=== PATIENT | male | born 2000 ===

== ENCOUNTER 2021-04-08 09:23 | Outpatient (REF) | payer BC, SELFPAY ==
[2021-04-08 11:33] LABS: Appearance Urine CLEAR; Color Urine STRAW; Glucose Urine UA NEG (NEG); Leukocyte Esterase Urine NEG (NEG); Nitrite Urine NEG (NEG); Urine Blood NEG (NEG); Urine Ketones NEG (NEG); Urine Protein NEG (NEG-TRACE)
[2021-04-08 12:06] LABS: Alanine Aminotransferase 51 U/L (0-40); Albumin Level 4.7 g/dL (3.5-5.0); Alkaline Phosphatase 130 U/L (39-117); Anion Gap 11 (12-20); Aspartate Amino Transferase 32 U/L (5-37); Bilirubin Total 0.5 mg/dL (0.0-1.0); Blood Urea Nitrogen 22 mg/dL (9-16); Calcium 9.4 mg/dL (8.4-10.2); Carbon Dioxide 28 mmol/L (22-29); Chloride 103 mmol/L (96-108); Cholesterol 200 mg/dL; Estimated Glomerular Filt Rate > 60; Glucose Fasting 102 mg/dL (60-99); HDL Cholesterol 41 mg/dL; LDL Cholesterol Calculated 133 mg/dl; Potassium 3.9 mmol/L (3.3-5.1); Sodium 138 mmol/L (135-145); Total Protein 7.4 g/dL (6.5-8.0); Triglycerides 132 mg/dL
[2021-04-08 12:15] LABS: TSH reflex Free T4 4.93 uIU/mL (0.32-4.0)
[2021-04-08 13:01] LABS: Free T4 (Free Thyroxine) 0.82 ng/dL (0.71-1.85)
== END 2021-04-08 09:24 | disposition home or self-care (01) ==
LOC: HO.HMGCLDS 09:23
PROVIDERS: Visit Provider Nurse Practitioner Family
DX: Z00.00 Encounter for general adult medical examination without abnormal findings (principal)
CPT/HCPCS: 36415; 80053; 80061; 81003; 84439; 84443

== ENCOUNTER 2021-05-06 08:58 | Outpatient (REF) | payer BC, SELFPAY ==
--- NOTE | ~2021-05-06 | US_ITS ---
EXAMINATION: US ABDOMEN COMPLETE CLINICAL INFORMATION: Abnormal LFTs. COMPARISON: None TECHNIQUE: Real-time imaging of the abdominal viscera. FINDINGS: PANCREAS: Normal. ABDOMINAL AORTA: The proximal, mid, and distal segments are normal in caliber. INFERIOR VENA CAVA: Visualized portions are normal. LIVER: Normal. The liver is normal in size. The liver contour is normal. Parenchymal echogenicity is normal. No focal hepatic lesion. There is no intrahepatic biliary duct dilatation seen. GALLBLADDER: Normal. The gallbladder is physiologically distended without evidence of stones, sludge, polyps, wall thickening or pericholecystic fluid. COMMON BILE DUCT: Normal in caliber measuring 0.17 cm in diameter. RIGHT KIDNEY: Normal. No hydronephrosis. No renal calculi or focal parenchymal lesions. The kidney measures 10.0 cm in maximum dimension. LEFT KIDNEY: Normal. No hydronephrosis. No renal calculi or focal parenchymal lesions. The kidney measures 11.9 cm in maximum dimension. SPLEEN: Normal. The spleen measures 13.8 cm in maximum dimension. FREE FLUID: None. US/US abdomen complete IMPRESSION: Unremarkable complete abdomen ultrasound.
[2021-05-06 12:15] LABS: Alanine Aminotransferase 68 U/L (0-40); Albumin Level 4.3 g/dL (3.5-5.0); Alkaline Phosphatase 118 U/L (39-117); Aspartate Amino Transferase 31 U/L (5-37); Bilirubin Direct 0.2 mg/dL (0.0-0.5); Bilirubin Total 0.4 mg/dL (0.0-1.0); Total Protein 6.9 g/dL (6.5-8.0)
[2021-05-07 09:21] LABS: Thyroid Peroxidase Antibodies 1 IU/mL (<9)
== END 2021-05-06 08:59 | disposition home or self-care (01) ==
LOC: HO.HMGCX 08:58
PROVIDERS: PCP Nurse Practitioner Family; Visit Provider Nurse Practitioner Family
DX: R74.8 Abnormal levels of other serum enzymes (principal); R79.89 Other specified abnormal findings of blood chemistry
CPT/HCPCS: 36415; 76700; 80076; 86376

== ENCOUNTER 2021-06-23 08:53 | Outpatient (REF) | payer BC, SELFPAY ==
[2021-06-23 11:47] LABS: Alanine Aminotransferase 36 U/L (0-40); Albumin Level 4.7 g/dL (3.5-5.0); Alkaline Phosphatase 114 U/L (39-117); Anion Gap 14 (12-20); Aspartate Amino Transferase 24 U/L (5-37); Bilirubin Total 0.5 mg/dL (0.0-1.0); Blood Urea Nitrogen 22 mg/dL (9-16); Calcium 10.1 mg/dL (8.4-10.2); Carbon Dioxide 27 mmol/L (22-29); Chloride 102 mmol/L (96-108); Estimated Glomerular Filt Rate > 60; Glucose Random 93 mg/dL (60-115); Sodium 138 mmol/L (135-145); Total Protein 7.3 g/dL (6.5-8.0)
[2021-06-23 11:56] LABS: TSH reflex Free T4 3.56 uIU/mL (0.32-4.0)
== END 2021-06-23 08:54 | disposition home or self-care (01) ==
LOC: HO.HMGCLDS 08:53
PROVIDERS: PCP Nurse Practitioner Family; Visit Provider Nurse Practitioner Family
DX: R74.8 Abnormal levels of other serum enzymes (principal); R79.89 Other specified abnormal findings of blood chemistry
CPT/HCPCS: 36415; 80053; 84443

== ENCOUNTER 2021-06-28 07:57 | Outpatient (REF) | payer BC, SELFPAY ==
[2021-06-28 10:59] LABS: MANUAL DIFF FLAG NO
[2021-06-28 11:02] LABS: Appearance Urine CLEAR; Color Urine YELLOW; Glucose Urine UA NEG (NEG); Leukocyte Esterase Urine NEG (NEG); Nitrite Urine NEG (NEG); Urine Blood NEG (NEG); Urine Ketones NEG (NEG); Urine Protein NEG (NEG-TRACE)
[2021-06-28 11:09] LABS: Basophils Percent Auto 0.7 % (0-2); Eosinophils Absolute Auto 0.1 X10*3/uL (0.0-0.4); Eosinophils Percent Auto 1.6 % (0-4); Hematocrit 49.7 % (42.0-52.0); Hemoglobin 16.7 g/dl (14.0-18.0); Imm Gran Abs Auto 0.01 X10*3/uL (0.00-0.03); Imm Gran Pct Auto 0.2 % (0.0-0.4); Lymphocytes Absolute Auto 2.1 X10*3/uL (1.2-4.9); Lymphocytes Percent Auto 37.5 % (20-40); Mean Corpuscular HGB Conc 33.6 g/dl (31.0-36.0); Mean Corpuscular Hemoglobin 28.7 pg (27.0-33.0); Mean Corpuscular Volume 85.5 fL (80.0-98.0); Mean Platelet Volume 9.4 fL (9.4-12.4); Monocytes Absolute Auto 0.5 X10*3/uL (0.1-1.2); Monocytes Percent Auto 8.2 % (2-11); Neutrophils Absolute Auto 2.9 x10*3/uL (2.0-8.3); Neutrophils Percent Auto 51.8 % (45-73); Platelet Count 223 X10*3/uL (160-400); Red Blood Count 5.81 X10*6/uL (4.60-5.80); Red Cell Distribution Width 11.8 % (11.0-16.0); White Blood Count 5.6 X10*3/uL (4.8-10.8)
[2021-06-28 11:15] LABS: Alanine Aminotransferase 85 U/L (0-40); Albumin Level 4.7 g/dL (3.5-5.0); Alkaline Phosphatase 117 U/L (39-117); Anion Gap 10 (12-20); Aspartate Amino Transferase 38 U/L (5-37); Bilirubin Total 0.9 mg/dL (0.0-1.0); Blood Urea Nitrogen 23 mg/dL (9-16); Calcium 9.8 mg/dL (8.4-10.2); Carbon Dioxide 31 mmol/L (22-29); Chloride 101 mmol/L (96-108); Estimated Glomerular Filt Rate > 60; Glucose Fasting 99 mg/dL (60-99); Iron 153 mcg/dL (45-160); Percent Iron Saturation 41 % (15-50); Potassium 4.6 mmol/L (3.3-5.1); Sodium 137 mmol/L (135-145); Total Iron Binding Capacity 369 mcg/dL (228-428); Total Protein 7.4 g/dL (6.5-8.0); Unsaturated Iron Binding 216 ug/dL
[2021-06-28 11:37] LABS: Ferritin 128 ng/mL (20-250); TSH reflex Free T4 3.17 uIU/mL (0.32-4.0)
[2021-06-30 07:33] LABS: Folate 17.5 ng/mL (> or = 4.0); Vitamin B12 830 pg/mL (200-900)
[2021-06-30 07:37] LABS: Follicle Stimulating Hormone 4.1 mIU/mL (1.6-8.0); Lutenizing Hormone 3.7 mIU/mL (1.5-9.3)
[2021-07-01 03:26] LABS: Lyme Blot 3.62 index
[2021-07-01 11:52] LABS: Lyme Abs Screen POSITIVE
[2021-07-01 23:32] LABS: 18 KD (IgG) Band REACTIVE; 23 KD (IgG) Band REACTIVE; 23 KD (IgM) Band REACTIVE; 28 KD (IgG) Band NON-REACTIVE; 30 KD (IgG) Band NON-REACTIVE; 39 KD (IgM) Band NON-REACTIVE; 41 KD (IgM) Band REACTIVE; 45 KD (IgG) Band NON-REACTIVE; 58 KD (IgG) Band REACTIVE; 66 KD (IgG) Band NON-REACTIVE; 93 KD (IgG) Band NON-REACTIVE; Lyme IgG Blot Interp NEGATIVE (NEGATIVE); Lyme IgM Blot Interp POSITIVE (NEGATIVE)
[2021-07-03 13:36] LABS: Testosterone, Total 516 ng/dL (250-1100)
== END 2021-06-28 07:58 | disposition home or self-care (01) ==
LOC: HO.HMGCLDS 07:57
PROVIDERS: Visit Provider Nurse Practitioner Family
DX: R53.83 Other fatigue (principal)
CPT/HCPCS: 36415; 80053; 81003; 82607; 82728; 82746; 83001; 83002; 83540; 84402; 84403; 84443; 85025; 86617; 86618

== ENCOUNTER → 2021-08-29 07:25 | Outpatient (REF) | payer BC, SELFPAY ==
--- NOTE | 2021-08-29 07:30 | CA_ITS ---
Transthoracic Echocardiogram Patient (Last, First, Middle): Conrado Skelton G Gender: Male Date of : 2000 Age: 21 Procedure Date: 08/29/2021 Procedure Type: Transthoracic Echocardiogram Location: OP Height: 182.88 cm Weight: 102.06 kg BSA: 2.24 m2 Heart Rate: bpm BP: 120 / 72 mmHg Bleach Analyst: JOSEPH Shi MD: Homer Plasencia [facility] Special Day Class Teacher: Jamie Fernandez MD Symptoms: R06.02 - Shortness of breath Study Quality: Excellent ECG Rhythm: Sinus Conclusions: - Normal study Findings Left Ventricle Normal left ventricular size, thickness, and systolic function. The visually estimated ejection fraction is between 55-60%. Diastolic function is normal for age. Right Ventricle Normal right ventricular cavity size and systolic function. Atria Both atria are normal in size. There is no evidence of interatrial shunt. Aortic Valve Normal aortic valve structure and function. There is no aortic valve stenosis. There is no aortic valve regurgitation. Mitral Valve Normal mitral valve structure and function. There is trace mitral valve regurgitation. There is no mitral valve stenosis. Pulmonic Valve The pulmonic valve is normal. There is trace pulmonic valve regurgitation. Tricuspid Valve Normal tricuspid valve structure. There is trace tricuspid valve regurgitation. The right ventricular systolic pressure is normal. The right ventricular systolic pressure is 21 mmHg. Normal right atrial pressure. There is no evidence of pulmonary hypertension. Great Vessels All visible segments of the aorta are normal in size. The visualized portions of the pulmonary artery and branches are normal. Venous The inferior vena cava is normal in size and collapses greater than 50% with inspiration. Pericardium/Pleural There is no evidence of pericardial effusion. Prior Study Comparison No prior study available for comparison. Measurements 2D Linear Measurements IVSd: 1.07 0.6-0.9/0.6-1.0 cm LVIDd: 5.04 3.9-5.3/4.2-5.9 cm LVIDd Index: 2.25 2.4-3.2/2.2-3.1 cm/m2 LVIDs: 3.22 2.0-3.6 cm LVPWd: 1.00 0.7-1.1 cm LA Diam: 3.60 2.7-3.8/3.0-4.0 cm LAIDs Index: 1.61 1.5-2.3 cm/m2 LV Mass: 240.66 67-162/88-224 g LV Mass Index: 107.44 43-95/49-115 g/m2 LVOT Diam: 2.40 3.0+(-)1.3 cm 2D Systolic Function EF 4C: 57.00 >55% EF 2C: 52.40 >55% EF BiP: 56.00 >55% Mitral Valve MV Pk E: 0.70 MV PK A: 0.38 MV Decel Time: 304.00 E/A: 1.90 E'Lateral: 17.20 E'Medial: 12.00 E/E' Med: 5.80 E/E' Lat: 4.10 PHT: 89.00 MVA PHT: 2.47 Decel Talbot: 2.29 Aortic Valve AoV Pk Jas: 1.36 AoV Mn Jas: 0.95 AoV VTI: 0.29 AoV Pk Grad: 7.00 Aov Mn Grad: 4.00 YAZMIN Cont.VTI: 2.92 LVOT LVOT Pk Jas: 1.08 LVOT Mn Jas: 0.68 LVOT VTI: 0.19 LVOT Pk Grad: 5.00 LVOT Mn Grad: 2.00 LVOT Diam: 2.40 LVOT Area: 4.52 Diastolic Function MV Pk E: 0.70 MV Pk A: 0.38 E/A: 1.90 E'Medial: 12.00 E/E' Med: 5.80 E' Laterial: 17.20 E/E' Lat: 4.10 Right Ventricle TAPSE (mm): 20.00 TVS' Jas: 14.90 Tricuspid Valve TR Pk Jas: 2.14 TR Pk Grad: 18.00 RA Press: 3.00 RVSP: 21.00 Great Vessels Aorta Ao Asc: 3.40 2.1-3.4 cm Ao Arch: 2.90 Updated in Other Vendor System with Status of Final Jamie Fernandez MD electronically signed on 08/30/2021 2:04:32 PM with status of Final
== END ==
LOC: HO.CARD 07:25
PROVIDERS: PCP Nurse Practitioner Family; Visit Provider Nurse Practitioner Family
DX: R06.02 Shortness of breath (principal); A69.20 Lyme disease, unspecified
CPT/HCPCS: 93306

== ENCOUNTER 2021-10-27 10:35 | Outpatient (REF) | payer BC, SELFPAY ==
[2021-10-27 11:21] LABS: MANUAL DIFF FLAG NO
[2021-10-27 11:34] LABS: Basophils Percent Auto 0.5 % (0-2); Eosinophils Absolute Auto 0.1 X10*3/uL (0.0-0.4); Eosinophils Percent Auto 1.6 % (0-4); Hematocrit 48.3 % (42.0-52.0); Hemoglobin 16.4 g/dl (14.0-18.0); Imm Gran Abs Auto 0.02 X10*3/uL (0.00-0.03); Imm Gran Pct Auto 0.3 % (0.0-0.4); Lymphocytes Percent Auto 41.2 % (20-40); Mean Corpuscular Volume 85.3 fL (80.0-98.0); Monocytes Absolute Auto 0.4 X10*3/uL (0.1-1.2); Monocytes Percent Auto 5.6 % (2-11); Neutrophils Absolute Auto 3.7 x10*3/uL (2.0-8.3); Neutrophils Percent Auto 50.8 % (45-73); Platelet Count 222 X10*3/uL (160-400); Red Blood Count 5.66 X10*6/uL (4.60-5.80); Red Cell Distribution Width 11.8 % (11.0-16.0); White Blood Count 7.3 X10*3/uL (4.8-10.8)
[2021-10-27 12:23] LABS: Alanine Aminotransferase 69 U/L (0-40); Albumin Level 4.7 g/dL (3.5-5.0); Alkaline Phosphatase 114 U/L (39-117); Anion Gap 15 (12-20); Aspartate Amino Transferase 30 U/L (5-37); Bilirubin Total 0.4 mg/dL (0.0-1.0); Blood Urea Nitrogen 27 mg/dL (9-16); Calcium 9.7 mg/dL (8.4-10.2); Carbon Dioxide 28 mmol/L (22-29); Chloride 102 mmol/L (96-108); Estimated Glomerular Filt Rate > 60; Glucose Random 92 mg/dL (60-115); Iron 97 mcg/dL (45-160); Percent Iron Saturation 26 % (15-50); Potassium 4.2 mmol/L (3.3-5.1); Sodium 141 mmol/L (135-145); Total Iron Binding Capacity 377 mcg/dL (228-428); Total Protein 7.4 g/dL (6.5-8.0); Unsaturated Iron Binding 280 ug/dL
[2021-10-27 12:27] LABS: Ferritin 105 ng/mL (20-250); TSH reflex Free T4 5.48 uIU/mL (0.32-4.0)
[2021-10-27 12:31] LABS: Vitamin B12 713 pg/mL (200-900)
[2021-10-27 13:36] LABS: Free T4 (Free Thyroxine) 0.84 ng/dL (0.71-1.85)
[2021-10-27 13:54] LABS: Appearance Urine Clear; Color Urine Yellow; Glucose Urine UA Negative (Negative); Leukocyte Esterase Urine Negative (Negative); Nitrite Urine Negative (Negative); Specific Gravity - Urine 1.025 (1.005-1.025); Urine Blood Negative (Negative); Urine Ketones Negative (Negative); Urine Protein Negative (Neg-Trace)
[2021-10-29 21:47] LABS: A. Phagocytphilium DNA,RT-PCR NOT DETECTED (NOT DETECTED); Babesia Microti DNA, RT-PCR NOT DETECTED (NOT DETECTED); Borrelia Miyamotoi,DNA RT-PCR NOT DETECTED (NOT DETECTED); E.Chaffeensis DNA RT-PCR NOT DETECTED (NOT DETECTED); Lyme(Borrelia ssp)DNA RT-PCR NOT DETECTED (NOT DETECTED)
[2021-10-30 11:21] LABS: Anti Nuclear Antibody Screen NEGATIVE (NEGATIVE)
[2021-10-31 14:15] LABS: Source-Tick borne disease BLOOD
== END 2021-10-27 10:36 | disposition home or self-care (01) ==
LOC: HO.HMGCLDS 10:35
PROVIDERS: PCP Nurse Practitioner Family; Visit Provider Nurse Practitioner Family
DX: R74.8 Abnormal levels of other serum enzymes (principal); R53.83 Other fatigue
CPT/HCPCS: 36415; 80053; 81003; 82607; 82728; 82746; 83540; 84439; 84443; 85025; 86038; 86039; 87798; 87801

== ENCOUNTER 2021-12-31 06:02 | Outpatient (REF) | payer BC, MEDICAID, SELFPAY ==
[2021-12-31 11:43] LABS: Gamma Glutamyl Transpeptidase 33 U/L (11-51)
[2021-12-31 12:04] LABS: HBS Num1 2.02 mIU/mL (0-7.99); HBsAGNum1 0.19 S/CO (0.00-0.99); HIV AB/AG Nonreactive (Nonreactive); HIV Num 1 0.22 S/CO (0.00-0.99); Hepatitis A Antibody IgM 0.25 Index (0-0.79); Hepatitis B Core Antibody Nonreactive (Nonreactive); Hepatitis B Surface Antigen Negative (Negative); ~HepC Num1 0.11 S/CO (0.00-0.79); ~Hepatitis A Antibody IgM Nonreactive (Nonreactive); ~Hepatitis B Surface Antibody NONREACTIVE (Nonreactive); ~Hepatitis C Antibody Nonreactive (Nonreactive)
[2021-12-31 12:06] LABS: Ferritin 119 ng/mL (20-250)
[2021-12-31 12:09] LABS: TSH reflex Free T4 4.04 uIU/mL (0.32-4.0)
[2021-12-31 12:50] LABS: Free T4 (Free Thyroxine) 0.81 ng/dL (0.71-1.85)
[2022-01-01 18:02] LABS: Thyroid Peroxidase Antibodies 2 IU/mL (<9)
[2022-01-02 13:47] LABS: Alpha Fetoprotein 1.2 ng/mL (<6.1)
[2022-01-05 14:23] LABS: Mitochondrial Antibodies NEGATIVE (NEGATIVE)
[2022-01-06 02:37] LABS: Smooth Muscle Antibody <20 U (<20)
== END 2021-12-31 06:03 | disposition home or self-care (01) ==
LOC: HO.HMGCLDS 06:02
PROVIDERS: Absent Provider Nurse Practitioner; PCP Nurse Practitioner Family; Visit Provider Nurse Practitioner Family
DX: R79.89 Other specified abnormal findings of blood chemistry (principal)
CPT/HCPCS: 36415; 82105; 82728; 82977; 84439; 84443; 86015; 86255; 86256; 86376; 86704; 86706; 86709; 86803; 87340; 87389

== ENCOUNTER 2022-11-03 06:02 | Outpatient (REF) | payer BC, SELFPAY ==
[2022-11-03 11:37] LABS: MANUAL DIFF FLAG NO
[2022-11-03 11:53] LABS: Appearance Urine Clear; Color Urine Yellow; Glucose Urine UA Negative (Negative); Leukocyte Esterase Urine Negative (Negative); Nitrite Urine Negative (Negative); Urine Blood Negative (Negative); Urine Ketones Negative (Negative); Urine Protein Negative (Neg-Trace)
[2022-11-03 11:59] LABS: Basophils Percent Auto 0.5 % (0-2); Eosinophils Absolute Auto 0.1 X10*3/uL (0.0-0.4); Eosinophils Percent Auto 1.4 % (0-4); Hematocrit 48.6 % (42.0-52.0); Hemoglobin 15.9 g/dl (14.0-18.0); Imm Gran Abs Auto 0.01 X10*3/uL (0.00-0.03); Imm Gran Pct Auto 0.2 % (0.0-0.4); Lymphocytes Absolute Auto 2.3 X10*3/uL (1.2-4.9); Lymphocytes Percent Auto 34.7 % (20-40); Mean Corpuscular HGB Conc 32.7 g/dl (31.0-36.0); Mean Corpuscular Hemoglobin 29.4 pg (27.0-33.0); Mean Platelet Volume 9.7 fL (9.4-12.4); Monocytes Absolute Auto 0.3 X10*3/uL (0.1-1.2); Monocytes Percent Auto 4.6 % (2-11); Neutrophils Absolute Auto 3.9 x10*3/uL (2.0-8.3); Neutrophils Percent Auto 58.6 % (45-73); Platelet Count 227 X10*3/uL (160-400); Red Cell Distribution Width 12.2 % (11.0-16.0); White Blood Count 6.6 X10*3/uL (4.8-10.8)
[2022-11-03 12:24] LABS: Alanine Aminotransferase 40 U/L (0-40); Albumin Level 4.6 g/dL (3.5-5.0); Alkaline Phosphatase 98 U/L (39-117); Anion Gap 12 (12-20); Aspartate Amino Transferase 26 U/L (5-37); Bilirubin Total 0.4 mg/dL (0.0-1.0); Blood Urea Nitrogen 22 mg/dL (9-16); Calcium 9.7 mg/dL (8.4-10.2); Carbon Dioxide 27 mmol/L (22-29); Chloride 106 mmol/L (96-108); Cholesterol 160 mg/dL (<200); Estimated Glomerular Filt Rate > 60; Glucose Fasting 97 mg/dL (60-99); HDL Cholesterol 39 mg/dL (>40); LDL Cholesterol Calculated 103 mg/dL (<100); Potassium 4.5 mmol/L (3.3-5.1); Sodium 140 mmol/L (135-145); Total Protein 7.1 g/dL (6.5-8.0); Triglycerides 91 mg/dL (<150)
[2022-11-03 13:03] LABS: Free T4 (Free Thyroxine) 0.82 ng/dL (0.71-1.85)
[2022-11-05 03:53] LABS: Thyroid Peroxidase Antibodies 1 IU/mL (<9)
== END 2022-11-03 06:03 | disposition home or self-care (01) ==
LOC: HO.HMGCLDS 06:02
PROVIDERS: PCP Nurse Practitioner Family; Visit Provider Nurse Practitioner Family
DX: R79.89 Other specified abnormal findings of blood chemistry (principal); R94.6 Abnormal results of thyroid function studies
CPT/HCPCS: 36415; 80053; 80061; 81003; 84439; 84443; 85025; 86376

== ENCOUNTER 2023-02-01 06:03 | Outpatient (REF) | payer BC, SELFPAY ==
[2023-02-01 12:04] LABS: TSH reflex Free T4 5.21 uIU/mL (0.32-4.0)
[2023-02-01 12:41] LABS: Free T4 (Free Thyroxine) 0.85 ng/dL (0.71-1.85)
== END 2023-02-01 06:04 | disposition home or self-care (01) ==
LOC: HO.HMGCLDS 06:03
PROVIDERS: PCP Nurse Practitioner Family; Visit Provider Nurse Practitioner Family
DX: R94.6 Abnormal results of thyroid function studies (principal)
CPT/HCPCS: 36415; 84439; 84443

== ENCOUNTER 2023-02-03 08:46 | Outpatient (AMB) | payer BC, SELFPAY ==
--- NOTE | 2023-02-03 08:52 | MHC.PC.OV ---
Vital Signs 02/03/23 08:55 Height 6 ft Weight 236 lb BMI 32.0 BP 130/100 H Blood Pressure Location Lt brachial Position Sitting Pulse 75 Pulse Source Pulse Oximeter Pulse Oximetry (%) 97 Oxygen Delivery Method Room Air Intake Visit Reasons: Thyroid F/U Intake Note: Patient here for follow up on thyroid labs. Allergies No Known Allergies Allergy (Verified 02/03/23 08:55) Medication List - Last Reconciled 02/03/23 by Homer Plasencia, CERTIFIED PERSONAL TRAINER- multivitamin (Daily Multi-Vitamin tablet) 1 tab PO DAILY Tobacco use date assessed: 04/30/22 HPI Thyroid F/U HPI Details Pt's last TSH was elevated at 5.21. Pt would like to monitor this rather than starting medication at this time. Denies excessive fatigue, constipation, and cold intolerance. Pt's blood pressure is elevated. Will have pt monitor his blood pressure at home and drop off readings in 3 weeks. Denies chest pain, shortness of breath, headache, dizziness, and blurred vision. Pt c/o diarrhea. He reports that he has to use the bathroom 20 minutes after eating. Pt does not have any cramping with this. Will order labs/stool studies. Denies fever, chills, and blood in stool. Pt reports intermittent chest discomfort with exercise. Will do an EKG in office. [facility] Medical History Lyme disease Social History (Updated 04/30/22 @ 10:37 by Odalys Lujan MA) Housing: Apartment Alcohol intake: never Patient Tobacco Use Status: Never used Tobacco e-Cigarette/Vaping Use: Never Used Second Hand Smoke Exposure: No service: No Current occupational status: employed Current occupation: [employer] Current occupational exposures/hazards: No Cognitive needs: No Hearing needs: No Vision needs: No Questionnaire Thrive Questionnaire Date Thrive assessed: 04/30/22 LYNN-7 AMB Questionnaire LYNN-7 Date LYNN - 7 assessed: 04/30/22 Source: Developed by Drs. Stevan Dover, Denisha Fuentes, Justin Rahman and colleagues, with an educational christina from [employer] Review of Systems Const Reports as per HPI Physical exam (Primary Care) Vital Signs: Last Vital Signs Pulse 75 02/03/23 08:55 BP 130/100 H 02/03/23 08:55 Pulse Ox 97 02/03/23 08:55 Oxygen Delivery Method Room Air 02/03/23 08:55 BMI result Body Mass Index 32.0 Tobacco/Smoking Status: Tobacco use Status Tobacco use date assessed 04/30/22 02/03/23 08:55 Patient Tobacco Use Status Never used Tobacco 02/03/23 08:55 e-Cigarette/Vaping Use Never Used 02/03/23 08:55 Thrive Assessment: Date of Thrive Assessment Date Thrive assessed 04/30/22 02/03/23 08:55 Const General: cooperative Orientation/consciousness: patient oriented x3 Resp Effort & Inspection: normal respiratory effort Auscultation: clear to auscultation bilaterally Cardio Rate: regular rate Rhythm: regular rhythm Heart sounds: S1 normal heart sound present and S2 normal heart sound present GI Palpation (GI): nontender Neuro General: patient oriented x3 Psych Appearance: grossly normal Mental Status: mental status grossly normal Speech and movement: Normal speech and movement present Affect: normal affect Attitude: cooperative Thought process: Normal thought process present Thought content: Normal thought content present Insight: Good insight present (Psych) Judgement: Good judgement present (Psych) Assessment and Plan Assessment & Plan (1) Diarrhea: Code(s): R19.7 - Diarrhea, unspecified Plan: Labs/stool studies ordered (2) Elevated TSH: Code(s): R79.89 - Other specified abnormal findings of blood chemistry (3) Chest discomfort: Code(s): R07.89 - Other chest pain Plan: ER with worsening CP Plan The patient agreed to the use of a medical records assistant for this encounter. Scribed for YASMINE Strong by Jovita Kelley medical records assistant, on 02/03/2023 at 09:10 EST. Orders: Orders H pylori Ag Stool Today R19.7 - Diarrhea, unspecified CDiff Gene PCR Today R19.7 - Diarrhea, unspecified Endomysial IgA rflx Titer Today R19.7 - Diarrhea, unspecified AMB EKG-In Office Today R07.89 - Other chest pain GI Panel Today R19.7 - Diarrhea, unspecified Transglutaminase IgA Today R19.7 - Diarrhea, unspecified Coding Level of Care Code Est Pt Level 3 (15655) Diagnoses Diarrhea R19.7 Elevated TSH R79.89 Chest discomfort R07.89
[2023-02-03 08:55] VITALS: BP 130/100; PULSE 75; O2SAT 97; BMI 32.0
== END 2023-02-03 10:16 | disposition home or self-care (01) ==
PROVIDERS: PCP Nurse Practitioner Family; Visit Provider Nurse Practitioner Family
DX: R19.7 Diarrhea, unspecified (principal); R79.89 Other specified abnormal findings of blood chemistry; R07.89 Other chest pain
CPT/HCPCS: 99213

== ENCOUNTER 2023-02-03 10:04 | Outpatient (REF) | payer BC, SELFPAY ==
[2023-02-05 20:14] LABS: Transglutaminase IgA <1.0 U/mL
[2023-02-06 11:42] LABS: Endomysial IgA Antibody Negative (Negative)
== END 2023-02-03 10:05 | disposition home or self-care (01) ==
LOC: HO.HMGCLDS 10:04
PROVIDERS: PCP Nurse Practitioner Family; Visit Provider Nurse Practitioner Family
DX: R19.7 Diarrhea, unspecified (principal)
CPT/HCPCS: 36415; 86231; 86364

== ENCOUNTER 2023-02-27 06:45 | Outpatient (REF) | payer BC, SELFPAY ==
[2023-02-27 12:35] LABS: CDiff Gene PCR NEGATIVE (Negative)
[2023-02-27 12:49] LABS: Adenovirus F 40/41 Not Detected (Not Detect.); Astrovirus Not Detected (Not Detect.); Campylobacter Not Detected (Not Detect.); Cryptosporidium Not Detected (Not Detect.); Cyclospora cayetanensis Not Detected (Not Detect.); E. coli EAEC Not Detected (Not Detect.); E. coli EPEC Not Detected (Not Detect.); E. coli ETEC Not Detected (Not Detect.); E. coli STEC Not Detected (Not Detect.); Entamoeba histolytica Not Detected (Not Detect.); Giardia lamblia Not Detected (Not Detect.); Norovirus GI/GII Not Detected (Not Detect.); Plesiomonas shigelloides Not Detected (Not Detect.); Rotavirus A Not Detected (Not Detect.); Salmonella Not Detected (Not Detect.); Sapovirus Not Detected (Not Detect.); Shigella sp./EIEC Not Detected (Not Detect.); Vibrio Not Detected (Not Detect.); Vibrio Cholerae Not Detected (Not Detect.); Yersinia enterocolitica Not Detected (Not Detect.)
== END 2023-02-27 06:46 | disposition home or self-care (01) ==
LOC: HO.HMGCLNP 06:45
PROVIDERS: PCP Nurse Practitioner Family; Visit Provider Nurse Practitioner Family
DX: R19.7 Diarrhea, unspecified (principal)
CPT/HCPCS: 87338; 87493; 87507

== ENCOUNTER 2023-05-12 16:32 | Outpatient (AMB) | payer BC, SELFPAY ==
[2023-05-12 16:37] VITALS: BP 122/68; PULSE 76; O2SAT 98; BMI 32.8
--- NOTE | 2023-05-12 16:37 | A.OFFPC_ITS ---
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 He is currently seeing GI for cramping and bloating after eating. He further reports still getting chest tightness approx 20 minutes after exercise/running. EKG were NSR, echo was NORMAL STUDY. He does report some faint wheezing during the chest tightness as well. I will get pFT testing (? exercise induced asthma component). I will also send him a CLARICE to try before exercise to see if this may help his symptoms. low lido, will recheck T levels, able to get an erection. [facility] Medical History Lyme disease Social History Housing: Apartment Alcohol intake: never Patient Tobacco Use Status: Never used Tobacco e-Cigarette/Vaping Use: Never Used Second Hand Smoke Exposure: No service: No Current occupational status: employed Current occupation: [employer] Current occupational exposures/hazards: No Cognitive needs: No Hearing needs: No Vision needs: No Questionnaire Thrive Questionnaire Date Thrive assessed: 04/30/22 LYNN-7 AMB Questionnaire LYNN-7 Date LYNN - 7 assessed: 04/30/22 Source: Developed by Drs. Stevan Dover, Denisha Fuentes, Justin Rahman and colleagues, with an educational christina from [employer]. Review of Systems Const Denies chills and Denies fever(s) Eyes Denies blurry vision ENT Denies vertigo, Denies dizziness and Denies sore throat Card Denies chest pain at rest, Denies chest pain with activity, Denies diaphoresis, Denies dyspnea and Denies dyspnea on exertion Resp Denies cough, Denies dyspnea, Denies dyspnea on exertion and Reports wheezing (with exercise only, denies any SOB) GI Details: cramping and bloating Denies abdominal pain, Denies melena, Denies hematochezia, Denies constipation, Denies diarrhea and Denies loose stools Denies hematuria Musc Denies numbness and Denies tingling Skin/Breast Denies lesions Neuro Denies vertigo, Denies dizziness, Denies numbness and Denies tingling Psych Denies anxiety, Denies depression, Denies homicidal ideation, Denies suicidal ideation and Denies other (substance abuse) Aller/Immun Reports wheezing (with exercise only, denies any SOB) Physical exam (Primary Care) Vital Signs: Last Vital Signs Pulse 76 05/12/23 16:37 BP 122/68 05/12/23 16:37 Pulse Ox 98 05/12/23 16:37 BMI result Body Mass Index 32.8 Tobacco/Smoking Status: Tobacco use Status Tobacco use date assessed 05/12/23 05/12/23 16:39 Patient Tobacco Use Status Never used Tobacco 05/12/23 16:39 e-Cigarette/Vaping Use Never Used 05/12/23 16:39 Thrive Assessment: Date of Thrive Assessment Date Thrive assessed 04/30/22 05/12/23 16:39 Const General: cooperative Nutritional Appearance: well nourished Orientation/consciousness: patient oriented x3 HENMT Head: Yes normal to inspection, Yes normocephalic and Yes atraumatic Ears: TM normal on the right and TM normal on the left Eyes General: appearance normal, both eyes and all related structures Alignment and Position: alignment normal and position normal Neck Neck: Yes normal visual inspection and Yes no lymphadenopathy Resp Effort & Inspection: normal respiratory effort Auscultation: clear to auscultation bilaterally Cardio Rate: regular rate Rhythm: regular rhythm Heart sounds: S1 normal heart sound present, S2 normal heart sound present and Murmur heart sound present systolic GI Palpation (GI): Soft to palpation and nontender Auscultation: normal bowel sounds Male General Exam: Yes normal external exam Penis: normal penis Scrotum: scrotum normal, testes descended bilaterally and no inguinal hernias Testes: no testicular mass Skin Rashes: no rashes Neuro General: patient oriented x3, moves all extremities, no focal motor deficits and deep tendon reflexes 2+ bilaterally Romberg Test: Negative Extrem Right lower extremity: no edema Left lower extremity: no edema Psych Affect: normal affect Attitude: cooperative Thought process: Normal thought process present Assessment and Plan Assessment & Plan (1) Physical exam: Code(s): Z00.00 - Encounter for general adult medical examination without abnormal findings Plan: labs ordered (2) Low libido: Code(s): R68.82 - Decreased libido Plan: check T levels (3) Chest tightness: Comment: chest tightness with exercise (? asthma) Code(s): R07.89 - Other chest pain Orders: Orders Complete Blood Count Auto Diff Today Z00.00 - Encounter for general adult medical examination without abnormal findings TSH reflex Free T4 Today Z00.00 - Encounter for general adult medical examination without abnormal findings UA CC w/rflx Micro + Cult Today Z00.00 - Encounter for general adult medical examination without abnormal findings Testosterone, Total Today R68.82 - Decreased libido Comprehensive [place]. Panel Fast Today Z00.00 - Encounter for general adult medical examination without abnormal findings Lipid Panel Today Z00.00 - Encounter for general adult medical examination without abnormal findings PFT pulmonary function test Today R07.89 - Other chest pain Medications: New albuterol sulfate 90 mcg/actuation (Ventolin HFA) 1 puff inhalation QID PRN 8.5 grams 0RF shortness of breath or wheezing Coding Level of Care Code Est Pt Prev Care 18-39y(67219) Diagnoses Physical exam Z00.00 Low libido R68.82 Chest tightness R07.89
== END 2023-05-12 17:27 | disposition home or self-care (01) ==
PROVIDERS: PCP Nurse Practitioner Family; Visit Provider Nurse Practitioner Family
DX: Z00.00 Encounter for general adult medical examination without abnormal findings (principal); R68.82 Decreased libido; R07.89 Other chest pain
CPT/HCPCS: 99395

== ENCOUNTER 2023-05-13 15:47 | Outpatient (AMB) | payer BC, SELFPAY ==
--- NOTE | 2023-05-13 15:51 | A.OFFVIS_ITS ---
Intake Vital Signs 05/13/23 15:54 Height 6 ft Weight 240 lb 4.862 oz BMI 32.6 BP 142/65 H Blood Pressure Location Lt brachial Position Sitting Pulse 70 Intake Visit Reasons: Diarrhea Intake Note: Patient present to in office visit today in follow up of diarrhea. CC: Patient reports nausea sometimes and diarrhea. Denies having other GI concerns. [employer] Required: No Accompanied by: Self / Same As Patient Allergies No Known Allergies Allergy (Verified 05/13/23 15:56) HPI Diarrhea HPI Details Assessment & Plan (1) Elevated LFTs: Comment: Baseline Laboratory Tests 05/06/21 Total Bilirubin 0.4 Direct Bilirubin 0.2 AST 30 ALT 69 H Alkaline Phosphatase 114 NARDA Screen NEGATIVE. Ferritin 119 GGT 33 Alpha Fetoprotein 1.2 Anti-Mitochondrial Ab NEGATIVE Anti-Smooth Muscle Ab <20 Hepatitis A IgM Ab TSH 4.04 H Free T4 0.81 Hepatitis A IgM Ab Nonreactive Hep Bs Antigen Negative Hep Bs Antibody NONREACTIVE Hep B Core Total Ab Nonreactive Hepatitis C Ab (EIA) Nonreactive HIV 1&2 Ab/P24 Ag 4thGn Nonreactive HE DOES NOT DRINK ALCOHOL CURRENT LABS US ABD 05/06/21 FINDINGS: PANCREAS: Normal. ABDOMINAL AORTA: The proximal, mid, and distal segments are normal in caliber. INFERIOR VENA CAVA: Visualized portions are normal. LIVER: Normal. The liver is normal in size. The liver contour is normal. Parenchymal echogenicity is normal. No focal hepatic lesion. There is no intrahepatic biliary duct dilatation seen. GALLBLADDER: Normal. The gallbladder is physiologically distended without evidence of stones, sludge, polyps, wall thickening or pericholecystic fluid. COMMON BILE DUCT: Normal in caliber measuring 0.17 cm in diameter. RIGHT KIDNEY: Normal. No hydronephrosis. No renal calculi or focal parenchymal lesions. The kidney measures 10.0 cm in maximum dimension. LEFT KIDNEY: Normal. No hydronephrosis. No renal calculi or focal parenchymal lesions. The kidney measures 11.9 cm in maximum dimension. SPLEEN: Normal. The spleen measures 13.8 cm in maximum dimension. FREE FLUID: None. US/US abdomen complete IMPRESSION: Unremarkable complete abdomen ultrasound. Code(s): R79.89 - Other specified abnormal findings of blood chemistry . We review the results, and a does not appear that he has any severely worrying liver problems.? I explained that he does not have any infections, and no indication of autoimmune disease.? I did note that he has a history of Lyme disease and elevated thyroid so I am uncertain whether these may be also contributing to the mild rise in his transaminases.? He is aware of the elevated thyroid he and his primary care doctor following this.? He is aware that we will watch him at 6 month intervals to see if there is any change and he is encouraged again to keep his weight controlled, avoid alcohol, and if he ever becomes diabetic to control his blood sugars is these at the 3 primary controllable factors when it comes to metabolic liver disease. He is agreeable to a 6 month follow-up.? ? Laboratory Tests 02/03/23 10:15 Endomysial IgA Ab Negative Tiss Transglutamin IgA <1.0 02/27/23-[address]: ORDERED: GI Panel Test Result Flag Refere nce Campylobacter No t Detected Not Det ect. P. shigell oides Not Detected No t Detect. Salmo blaze Not Detect ed Not Detect. Vibrio Not D etected Not Detect . Vibrio Choler ae Not Detected Not D etect. Y. enter ocolit. Not Detected Not Detect. E. coli EAEC Not Dete cted Not Detect. E. coli EPEC Not Detected Not Dete ct. E. coli ETE C Not Detected Not Detect. E. col i STEC Not Detecte d Not Detect. E . coli O157 Not kevyn licable Not Detect. E. coli c ontaining the O157 antigen are a sub set of Shig a-like toxin-produ cing E. coli (STEC ). Shigella/EIEC Not Detected Not D etect. Cryptosp oridium Not Detected Not Detect. Cyc lospora Not Dete cted Not Detect. E. histolytica Not Detected Not Dete ct. Giardia pal blia Not Detected Not Detect. Adenov irus Not Detecte d Not Detect. A strovirus Not De tected Not Detect. Norovirus N ot Detected Not De tect. Rotavirus A Not Detected N ot Detect. Denny virus Not Detec princess Not Detect. TODAY'S VISIT Patient has been lost follow-up since 01/22/2022. He is here today to with a new problem of diarrhea. He is having nausea and post prandial BM's, this has been a problem for years. It has worsened over the past year, and he has a lot of bloating. His PCP did some tests and there is no infection and no Celiac. He also has a LOT of bloating with flatulence. He bloats wtih eating anything including drinking water. He is unsure if there is any family hx of similar sx. We know his GB is ok r/t past US. He eats a very organic and healthy diet. ROV 3 weeks. [facility] Medical History Lyme disease Surgical History No pertinent past surgical history Social History Housing: Apartment Alcohol intake: never Patient Tobacco Use Status: Never used Tobacco e-Cigarette/Vaping Use: Never Used Second Hand Smoke Exposure: No service: No Current occupational status: employed Current occupation: [employer] Current occupational exposures/hazards: No Cognitive needs: No Hearing needs: No Vision needs: No Review of Systems Const Denies fatigue, Denies fever(s), Denies night sweats, Denies poor appetite and Denies weight loss Eyes Details: glasses Reports requires corrective lenses ENT Reports Normal hearing present, Denies dental pain, Denies dysphagia, Denies hearing loss, Denies mouth pain, Denies odynophagia, Denies throat swelling, Denies tongue swelling and Reports other (Dentition adequate) Card Reports no additional complaints Resp Reports no additional complaints GI Details: Denies abdominal pain, Denies melena, Denies bloating, Denies hematochezia, Denies constipation, Denies GI cramping, Denies dysphagia, Denies excessive flatus, Denies early satiety, Denies heartburn, Denies diarrhea, Reports loose stools, Reports nausea, Denies odynophagia, Denies vomiting and Denies he matemesis Skin/Breast Denies pruritus, Denies lesions, Denies rash and Denies jaundice Neuro Reports Normal hearing present and Denies Abnormal speech present Endo Denies fatigue Aller/Immun Denies throat swelling and Denies tongue swelling Physical Exam Vital Signs: Last Vital Signs Pulse 70 05/13/23 15:54 BP 142/65 H 05/13/23 15:54 BMI result Body Mass Index 32.6 Const General: cooperative, no acute distress, well developed and well groomed Nutritional Appearance: well nourished and obese Orientation/consciousness: oriented to person, oriented to place and oriented to time Limitations: No language barrier HEENT Head: Yes normocephalic and Yes atraumatic Eyes General: appearance normal, both eyes and all related structures Pupils: Equal, round and reactive pupils present Neck Neck: Yes normal visual inspection and Yes no lymphadenopathy Thyroid: Thyroid normal Resp Effort & Inspection: normal respiratory effort and able to speak in complete sentences Auscultation: clear to auscultation bilaterally Cardio Rate: regular rate Rhythm: regular rhythm Heart sounds: Normal, physiologic split S2 sound present Peripheral pulses: radial pulses present and posterior tibial pulses present GI Inspection: No distended, No Abdominal panniculus present and Yes obesity Palpation (GI): Soft to palpation, nontender, no guarding, not rigid and No hepatosplenomegaly present Percussion: Yes normal to percussion Auscultation: normal bowel sounds Rectal Exam - Male: Yes deferred Skin General skin exam: no rashes or lesions noted, turgor normal, skin not dry, no jaundice, No spider nevi and no striae Rashes: no rashes Nails: normal Neuro General: oriented to person, oriented to place and oriented to time Cranial nerves: Yes Equal, round and reactive pupils present and Yes Normal hearing present Speech: No Abnormal speech present Extrem General: Yes normal to inspection, No clubbing, No cyanosis and No edema Psych Appearance: grossly normal and well kempt Mental Status: mental status grossly normal Speech and movement: Normal speech and movement present Affect: normal affect Attitude: cooperative Thought process: Normal thought process present and not confabulating Thought content: Normal thought content present Insight: Fair insight present (Psych) and Limited insight present (Psych) Judgement: Fair judgement present (Psych) and Limited judgement present (Psych) Assessment & Plan Assessment & Plan (1) Diarrhea: Code(s): R19.7 - Diarrhea, unspecified Plan Patient has been lost follow-up since 01/22/2022. He is here today to with a new problem of diarrhea. He is having nausea and post prandial BM's, this has been a problem for years. It has worsened over the past year, and he has a lot of bloating. His PCP did some tests and there is no infection and no Celiac. He also has a LOT of bloating with flatulence. He bloats wtih eating anything including drinking water. He is unsure if there is any family hx of similar sx. We know his GB is ok r/t past US. He eats a very organic and healthy diet. ROV 3 weeks. I am going to give him a trial of dicyclomine to see if this impacts postprandial diarrhea and bloating at all. The nausea could be driven by an overactive bowel. Orders: Orders Calprotectin, Fecal Today R19.7 - Diarrhea, unspecified Rast Allergen Today R19.7 - Diarrhea, unspecified Pancreatic Elastase-1 Today R19.7 - Diarrhea, unspecified C Reactive Protein Today R19.7 - Diarrhea, unspecified Medications: New dicyclomine 10 mg PO QID 120 caps 3RF R19.7 - Diarrhea, unspecified Coding Level of Care Code Est Pt Level 3 (48111) Diagnoses Diarrhea R19.7
[2023-05-13 15:54] VITALS: BP 142/65; PULSE 70; BMI 32.6
== END 2023-05-13 16:21 | disposition home or self-care (01) ==
PROVIDERS: PCP Nurse Practitioner Family; Visit Provider Nurse Practitioner
DX: R19.7 Diarrhea, unspecified (principal)
CPT/HCPCS: 99213

== ENCOUNTER → 2023-05-13 15:47 | Outpatient (BNVA) | payer BC, SELFPAY | PROVIDERS: PCP Nurse Practitioner Family; Visit Provider Nurse Practitioner ==

== ENCOUNTER 2023-05-15 06:45 | Outpatient (REF) | payer BC, SELFPAY ==
[2023-05-15 10:58] LABS: Appearance Urine Clear; Color Urine Yellow; Glucose Urine UA Negative (Negative); Leukocyte Esterase Urine Negative (Negative); Nitrite Urine Negative (Negative); Specific Gravity - Urine 1.025 (1.005-1.025); Urine Blood Negative (Negative); Urine Ketones Negative (Negative); Urine Protein Negative (Neg-Trace)
[2023-05-15 11:09] LABS: MANUAL DIFF FLAG NO
[2023-05-15 11:12] LABS: Basophils Percent Auto 0.5 % (0-2); Eosinophils Absolute Auto 0.1 X10*3/uL (0.0-0.4); Eosinophils Percent Auto 2.2 % (0-4); Hematocrit 49.6 % (42.0-52.0); Hemoglobin 16.8 g/dl (14.0-18.0); Imm Gran Abs Auto 0.02 X10*3/uL (0.00-0.03); Imm Gran Pct Auto 0.3 % (0.0-0.4); Lymphocytes Absolute Auto 2.8 X10*3/uL (1.2-4.9); Lymphocytes Percent Auto 45.1 % (20-40); Mean Corpuscular HGB Conc 33.9 g/dl (31.0-36.0); Mean Corpuscular Hemoglobin 29.5 pg (27.0-33.0); Mean Platelet Volume 9.5 fL (9.4-12.4); Monocytes Absolute Auto 0.4 X10*3/uL (0.1-1.2); Monocytes Percent Auto 5.9 % (2-11); Neutrophils Absolute Auto 2.9 x10*3/uL (2.0-8.3); Platelet Count 211 X10*3/uL (160-400); Red Cell Distribution Width 11.9 % (11.0-16.0); White Blood Count 6.2 X10*3/uL (4.8-10.8)
[2023-05-15 12:14] LABS: Alanine Aminotransferase 44 U/L (0-40); Albumin Level 4.7 g/dL (3.5-5.0); Alkaline Phosphatase 118 U/L (39-117); Anion Gap 11 (12-20); Aspartate Amino Transferase 30 U/L (5-37); Bilirubin Total 0.5 mg/dL (0.0-1.0); Blood Urea Nitrogen 26 mg/dL (9-16); C Reactive Protein < 0.10 mg/dL (< or = 0.50); Calcium 9.7 mg/dL (8.4-10.2); Carbon Dioxide 28 mmol/L (22-29); Chloride 106 mmol/L (96-108); Cholesterol 218 mg/dL (<200); Estimated Glomerular Filt Rate > 60; Glucose Fasting 97 mg/dL (60-99); HDL Cholesterol 43 mg/dL (>40); LDL Cholesterol Calculated 154 mg/dL (<100); Potassium 4.2 mmol/L (3.3-5.1); Sodium 141 mmol/L (135-145); Total Protein 7.6 g/dL (6.5-8.0); Triglycerides 108 mg/dL (<150)
[2023-05-20 23:04] LABS: Pancreatic Elastase-1 >500 mcg/g
[2023-05-21 12:34] LABS: Testosterone, Total 507 ng/dL (250-1100)
[2023-05-22 20:23] LABS: Calprotectin, Fecal 21 mcg/g
== END 2023-05-15 06:46 | disposition home or self-care (01) ==
LOC: HO.HMGCLDS 06:45
PROVIDERS: PCP Nurse Practitioner Family; Referring Provider Nurse Practitioner; Visit Provider Nurse Practitioner Family
DX: Z00.00 Encounter for general adult medical examination without abnormal findings (principal); R68.82 Decreased libido; R19.7 Diarrhea, unspecified
CPT/HCPCS: 36415; 80053; 80061; 81003; 82656; 83993; 84403; 84443; 85025; 86140

== ENCOUNTER 2023-06-03 16:16 | Outpatient (AMB) | payer BC, SELFPAY ==
[2023-06-03 16:21] VITALS: BP 153/66; PULSE 74; BMI 32.3
--- NOTE | 2023-06-03 16:21 | MHC.OFFVIS ---
Intake Vital Signs 06/03/23 16:21 Height 6 ft Weight 238 lb 8.642 oz BMI 32.3 BP 153/66 H Blood Pressure Location Lt brachial Position Sitting Pulse 74 Intake Visit Reasons: 3 week follow up Intake Note: Conrado presents to in office visit today in 3 weeks follow up for labs. CC: Patient continues to have diarrhea. He states that he was not able to have RAST done because lab did not receive the requisition form. 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 He is here today to with a new problem of diarrhea. He is having nausea and post prandial BM's, this has been a problem for years. It has worsened over the past year, and he has a lot of bloating. His PCP did some tests and there is no infection and no Celiac. He also has a LOT of bloating with flatulence. He bloats with eating anything including drinking water. He is unsure if there is any family hx of similar sx. We know his GB is ok r/t past US. He eats a very organic and healthy diet. ROV 3 weeks. I am going to give him a trial of dicyclomine to see if this impacts postprandial diarrhea and bloating at all. The nausea could be driven by an overactive bowel. Orders: Orders Calprotectin, Feca l Today R19.7 - Diarrhea, unspecified Rast Allergen Today R19.7 - Diarrhea, unspecified Pancreatic Elastas e-1 Today R19.7 - Diarrhea, unspecified C Reactive Protein Today R19.7 - Diarrhea, unspecified Medications: New dicyclomine 10 mg PO QID 120 caps 3RF R19.7 - Diarrhea, unspecified LABS: ??Laboratory Tests 05/15/23 05/15/23 07:17 08:00 C-Reactive Protein < 0.10 Stool Calprotectin 21 Stool Pancreat Dia stase >500 RAST PANEL WAS NOT OBTAINED TODAY'S VISIT He accidentally lost the 10 mg Bentyl prescription so he has not a chance to try it. He has some more of his family history for me and is as follows: Grandfather diverticulitis intestine rupture and colostomy - brother had fistula repair with ? intestines? - uncle TICS - mother TICS 20 years ago. Given this extensive history of unexplained colon problems I think I am going to get CT scan to be thorough. He definitely does not seem to have inflammatory bowel disease but that has not the only thing that can cause fistulas and it may be the has a family history of circulatory disorders causing gut infarctions. I will re send at 20mg dose so that he can fill the Bentyl. Sending for RAST, we failed to give him the RAST sheet so he is agreeable to going today to obtain this test We discussed a trial of Creon for his gas bloating and diarrhea and he is agreeable to doing this along with the dicyclomine. ROV 4 weeks. [facility] Medical History (Updated 06/03/23 @ 16:35 by CHRIS Garcia) Chest discomfort Physical exam Lyme disease Surgical History No pertinent past surgical history Social History Housing: Apartment Alcohol intake: never Patient Tobacco Use Status: Never used Tobacco e-Cigarette/Vaping Use: Never Used Second Hand Smoke Exposure: No service: No Current occupational status: employed Current occupation: [employer] Current occupational exposures/hazards: No Cognitive needs: No Hearing needs: No Vision needs: No Review of Systems Const Denies fatigue, Denies fever(s), Denies night sweats, Denies poor appetite and Denies weight loss Eyes Details: glasses Reports requires corrective lenses ENT Reports Normal hearing present, Denies dental pain, Denies dysphagia, Denies hearing loss, Denies mouth pain, Denies odynophagia, Denies throat swelling, Denies tongue swelling and Reports other (Dentition adequate) Card Reports no additional complaints Resp Reports no additional complaints GI Details: Denies abdominal pain, Denies melena, Reports bloating, Denies hematochezia, Denies constipation, Denies GI cramping, Denies dysphagia, Reports excessive flatus, Denies early satiety, Denies heartburn, Reports diarrhea, Reports nausea, Denies odynophagia, Denies vomiting and Denies hematemesis Skin/Breast Denies pruritus, Denies lesions, Denies rash and Denies jaundice Neuro Reports Normal hearing present and Denies Abnormal speech present Endo Denies fatigue Aller/Immun Denies throat swelling and Denies tongue swelling Physical Exam Vital Signs: Last Vital Signs Pulse 74 06/03/23 16:21 BP 153/66 H 06/03/23 16:21 BMI result Body Mass Index 32.3 Const General: cooperative, no acute distress, well developed and well groomed Nutritional Appearance: well nourished and obese Orientation/consciousness: oriented to person, oriented to place and oriented to time Limitations: No language barrier HEENT Head: Yes normocephalic and Yes atraumatic Eyes General: appearance normal, both eyes and all related structures Pupils: Equal, round and reactive pupils present Neck Neck: Yes normal visual inspection and Yes no lymphadenopathy Thyroid: Thyroid normal Resp Effort & Inspection: normal respiratory effort and able to speak in complete sentences Auscultation: clear to auscultation bilaterally Cardio Rate: regular rate Rhythm: regular rhythm Heart sounds: Normal, physiologic split S2 sound present Peripheral pulses: radial pulses present and posterior tibial pulses present GI Inspection: No distended, No Abdominal panniculus present and Yes obesity Palpation (GI): Soft to palpation, nontender, no guarding, not rigid and No hepatosplenomegaly present Percussion: Yes normal to percussion Auscultation: normal bowel sounds Rectal Exam - Male: Yes deferred Skin General skin exam: no rashes or lesions noted, turgor normal, skin not dry, no jaundice, No spider nevi and no striae Rashes: no rashes Nails: normal Neuro General: oriented to person, oriented to place and oriented to time Cranial nerves: Yes Equal, round and reactive pupils present and Yes Normal hearing present Speech: No Abnormal speech present Extrem General: Yes normal to inspection, No clubbing, No cyanosis and No edema Psych Appearance: grossly normal and well kempt Mental Status: mental status grossly normal Speech and movement: Normal speech and movement present Affect: normal affect Attitude: cooperative Thought process: Normal thought process present and not confabulating Thought content: Normal thought content present Insight: Fair insight present (Psych) Judgement: Fair judgement present (Psych) Results Reviewed Results Reviewed: Laboratory Tests 05/15/23 05/15/23 07:17 08:00 C-Reactive Protein < 0.10 Stool Calprotectin 21 Stool Pancreat Elastase >500 Assessment & Plan Assessment & Plan (1) Diarrhea: Code(s): R19.7 - Diarrhea, unspecified (2) Abdominal pain: Code(s): R10.9 - Unspecified abdominal pain Plan He accidentally lost the 10 mg Bentyl prescription so he has not a chance to try it. He has some more of his family history for me and is as follows: Grandfather diverticulitis intestine rupture and colostomy - brother had fistula repair with ? intestines? - uncle TICS - mother TICS 20 years ago. Given this extensive history of unexplained colon problems I think I am going to get CT scan to be thorough. He definitely does not seem to have inflammatory bowel disease but that has not the only thing that can cause fistulas and it may be the has a family history of circulatory disorders causing gut infarctions. I will re send at 20mg dose so that he can fill the Bentyl. Sending for RAST, we failed to give him the RAST sheet so he is agreeable to going today to obtain this test We discussed a trial of Creon for his gas bloating and diarrhea and he is agreeable to doing this along with the dicyclomine. ROV 4 weeks. Orders: Orders CT abdomen pelvis w IV con Today R10.9 - Unspecified abdominal pain Medications: New opzhly-[id number] 24,000-76,000 -120,000 unit (Creon) 2 caps PO BID 30 days 120 caps 3RF K58.9 - Irritable bowel syndrome without diarrhea dicyclomine 20 mg PO QID 30 days 120 tabs 1RF Discontinued dicyclomine Discontinued Reason: Doctor's Order 10 mg PO QID 120 caps 3RF R19.7 - Diarrhea, unspecified Coding Level of Care Code Est Pt Level 3 (92817) Diagnoses Diarrhea R19.7 Abdominal pain R10.9
== END 2023-06-03 16:40 | disposition home or self-care (01) ==
PROVIDERS: PCP Nurse Practitioner Family; Visit Provider Nurse Practitioner
DX: R19.7 Diarrhea, unspecified (principal); R10.9 Unspecified abdominal pain
CPT/HCPCS: 99213

== ENCOUNTER → 2023-06-03 16:16 | Outpatient (BNVA) | payer BC, SELFPAY | PROVIDERS: PCP Nurse Practitioner Family; Visit Provider Nurse Practitioner ==

== ENCOUNTER 2023-06-29 17:00 | Outpatient (REF) | payer BC, SELFPAY | END 2023-06-29 17:01 | disposition home or self-care (01) | LOC: HO.LAB 17:00 | PROVIDERS: PCP Nurse Practitioner Family; Visit Provider Nurse Practitioner | DX: R19.7 Diarrhea, unspecified (principal); Z91.09 Other allergy status, other than to drugs and biological substances | CPT/HCPCS: 36415; 86003 ==

== ENCOUNTER → 2023-07-01 16:20 | Outpatient (BNVA) | payer BC, SELFPAY | PROVIDERS: PCP Nurse Practitioner Family; Visit Provider Nurse Practitioner ==

== ENCOUNTER 2023-10-22 16:28 | Outpatient (AMB) | payer BC, SELFPAY ==
[2023-10-22 16:31] VITALS: BP 144/58; PULSE 61; BMI 31.6
--- NOTE | 2023-10-22 16:31 | A.OFFVIS_ITS ---
Vital Signs 10/22/23 16:31 Height 6 ft Weight 232 lb 12.93 oz BMI 31.6 BP 144/58 H Blood Pressure Location Lt brachial Position Sitting Pulse 61 Intake Visit Reasons: Follow up Intake Note: Conrado returns to in office visit today in follow up of abdominal pain. CC: Patient continues to have abdominal pain and diarrhea. jason slo repots occasional cramping. Streaming Media Specialist Required: No Accompanied by: Self / Same As Patient Allergies No Known Allergies Allergy (Verified 10/22/23 16:35) HPI HPI Follow up: Details: Assessment & Plan (1) Diarrhea: Code(s): R19.7 - Diarrhea, unspecified (2) Abdominal pain: Code(s): R10.9 - Unspecified abdominal pain Plan He accidentally lost the 10 mg Bentyl prescription so he has not a chance to try it. He has some more of his family history for me and is as follows: Grandfather diverticulitis intestine rupture and colostomy - brother had fistula repair with ? intestines? - uncle TICS - mother TICS 20 years ago. Given this extensive history of unexplained colon problems I think I am going to get CT scan to be thorough. He definitely does not seem to have inflammatory bowel disease but that has not the only thing that can cause fistulas and it may be the has a family history of circulatory disorders causing gut infarctions. I will re send at 20mg dose so that he can fill the Bentyl. Sending for RAST, we failed to give him the RAST sheet so he is agreeable to going today to obtain this test We discussed a trial of Creon for his gas bloating and diarrhea and he is agreeable to doing this along with the dicyclomine. ROV 4 weeks. Orders: Orders CT abdomen pelvis w IV con Today R10.9 - Unspecified abdominal pain Medications: New isxiwh-trffxbib-icxmbaf 24,000-76,000 -120,000 unit (Creon) 2 caps PO BID 30 days 120 caps 3RF K58.9 - Irritable bowel syndrome without diarrhea dicyclomine 20 mg PO QID 30 days 120 tabs 1RF Discontinued dicyclomine Discontinued Reason: Doctor's Order 10 mg PO QID 120 caps 3RF R19.7 - Diarrhea, unspecified RAST PANEL SHOWS NO SIGNIFICANT FOOD ALLERGIES CT ABDOMEN AND PELVIS ?? Canceled due to prior approval and clinically necessary CORRESPONDENCE On 10/08/23 @ 13:37 Jose Alford Wrote To Tanika Santiago Patient coming on 10/21 for follow up. On 10/08/23 @ 10:59 Tanika Santiago Wrote To Jose Alford please call this pt and get him an appt to see me. On 10/08/23 @ 09:42 Prince Garcia Wrote To JackTanika Thank you - given the change noted, kindly inform the patient. At this point, it would help the patient if he hears from you. Kindly keep us posted so we can close the loop. On 10/07/23 @ 15:52 Tanika Santiago Wrote To Prince Garcia This is not a study that he actually needs done, I only ordered it in the case of being thorough so I do not see any value in persisting in getting this study. On 06/28/23 @ 10:12 Umm Reynolds Wrote To Tanika Santiago Rast form is done. I left him a message letting him know I faxed it to the lab. [facility] removed from item. On 06/25/23 @ 15:09 Peggy Mei Wrote To JackTanika (2) patient has called [facility] and is stating that the lab needs to know what food allergies he is being tested for TODAY'S VISIT No help with creon or emelyyl. No food allergies. discussed intolerances. He has a lot of bloating and mostly post prandial soft BM's wit some diarrhea. Trial of imipramine. GET US since could not get CT and colonoscopy to see if other pathology. rov 8 WEEKS. [facility] Medical History Chest discomfort Physical exam Lyme disease Surgical History No pertinent past surgical history Social History Housing: Apartment Alcohol intake: never Patient Tobacco Use Status: Never used Tobacco e-Cigarette/Vaping Use: Never Used Second Hand Smoke Exposure: No service: No Current occupational status: employed Current occupation: [employer] Current occupational exposures/hazards: No Cognitive needs: No Hearing needs: No Vision needs: No Review of Systems Const Denies fatigue, Denies fever(s), Denies night sweats, Denies poor appetite and Denies weight loss Eyes Details: glasses Reports requires corrective lenses ENT Reports Normal hearing present, Denies dental pain, Denies dysphagia, Denies hearing loss, Denies mouth pain, Denies odynophagia, Denies throat swelling, Denies tongue swelling and Reports other (Dentition adequate) Card Reports no additional complaints Resp Reports no additional complaints GI Details: Reports abdominal pain, Denies melena, Denies bloating, Denies hematochezia, Denies constipation, Denies GI cramping, Denies dysphagia, Denies excessive flatus, Denies early satiety, Denies heartburn, Reports diarrhea, Denies nausea, Denies odynophagia, Denies vomiting and Denies hematemesis Skin/Breast Denies pruritus, Denies lesions, Denies rash and Denies jaundice Neuro Reports Normal hearing present and Denies Abnormal speech present Endo Denies fatigue Aller/Immun Denies throat swelling and Denies tongue swelling Physical Exam Vital Signs: Last Vital Signs Pulse 61 10/22/23 16:31 BP 144/58 H 10/22/23 16:31 BMI result Body Mass Index 31.6 Const General: cooperative, no acute distress, well developed and well groomed Nutritional Appearance: well nourished and obese Orientation/consciousness: oriented to person, oriented to place and oriented to time Limitations: No language barrier HEENT Head: Yes normocephalic and Yes atraumatic Eyes General: appearance normal, both eyes and all related structures Pupils: Equal, round and reactive pupils present Neck Neck: Yes normal visual inspection and Yes no lymphadenopathy Thyroid: Thyroid normal Resp Effort & Inspection: normal respiratory effort and able to speak in complete sentences Auscultation: clear to auscultation bilaterally Cardio Rate: regular rate Rhythm: regular rhythm Heart sounds: Normal, physiologic split S2 sound present Peripheral pulses: radial pulses present and posterior tibial pulses present GI Inspection: No distended, No Abdominal panniculus present and Yes obesity Palpation (GI): Soft to palpation, nontender, no guarding, not rigid and No hepatosplenomegaly present Percussion: Yes normal to percussion Auscultation: normal bowel sounds Rectal Exam - Male: Yes deferred Skin General skin exam: no rashes or lesions noted, turgor normal, skin not dry, no jaundice, No spider nevi and no striae Rashes: no rashes Nails: normal Neuro General: oriented to person, oriented to place and oriented to time Cranial nerves: Yes Equal, round and reactive pupils present and Yes Normal hearing present Speech: No Abnormal speech present Extrem General: Yes normal to inspection, No clubbing, No cyanosis and No edema Psych Appearance: grossly normal and well kempt Mental Status: mental status grossly normal Speech and movement: Normal speech and movement present Affect: normal affect Attitude: cooperative Thought process: Normal thought process present and not confabulating Thought content: Normal thought content present Insight: Good insight present (Psych) Judgement: Good judgement present (Psych) Assessment & Plan Assessment & Plan (1) Abdominal pain: Code(s): R10.9 - Unspecified abdominal pain Category: Medical (2) Diarrhea: Code(s): R19.7 - Diarrhea, unspecified Category: Medical Plan No help with creon or bentyl. No food allergies. discussed intolerances. He has a lot of bloating and mostly post prandial soft BM's wit some diarrhea. Trial of imipramine. GET US since could not get CT and colonoscopy to see if other pathology. rov 8 WEEKS. Orders: Orders US abdomen complete 10/22/23 R10.9 - Unspecified abdominal pain, R19.7 - Diarrhea, unspecified Colonoscopy - GI Use Only 10/22/23 R10.9 - Unspecified abdominal pain, R19.7 - Diarrhea, unspecified Medications: New imipramine HCl 10 mg PO BEDTIME 30 tabs 3RF 30 days R19.7 - Diarrhea, unspecified peg 3350-electrolytes 236-22.74-6.74 -5.86 gram (Golytely) until fecal effluent is clear; do not exceed a total volume of 2,000 mL 240 mL PO Q10M 4,000 mL 0RF 1 day Z12.11 - Encounter for screening for malignant neoplasm of colon Discontinued uhtbhl-eequgocn-lcpotiv 24,000-76,000 -120,000 unit Discontinued Reason: Doctor's Order 2 caps PO BID 30 days 120 caps 3RF K58.9 - Irritable bowel syndrome without diarrhea dicyclomine Discontinued Reason: Doctor's Order 20 mg PO QID 30 days 120 tabs 1RF Coding Level of Care Code Est Pt Level 3 (16099) Diagnoses Abdominal pain R10.9 Diarrhea R19.7
== END 2023-10-22 17:08 | disposition home or self-care (01) ==
PROVIDERS: PCP Nurse Practitioner Family; Visit Provider Nurse Practitioner
DX: R10.9 Unspecified abdominal pain (principal); R19.7 Diarrhea, unspecified
CPT/HCPCS: 99213

== ENCOUNTER → 2023-10-22 16:28 | Outpatient (BNVA) | payer BC, SELFPAY | PROVIDERS: PCP Nurse Practitioner Family; Visit Provider Nurse Practitioner ==

== ENCOUNTER 2023-11-01 10:07 | Outpatient (REF) | payer BC, SELFPAY ==
--- NOTE | ~2023-11-01 | US_ITS ---
EXAMINATION: US ABDOMEN COMPLETE CLINICAL INFORMATION: Unspecified abdominal pain. COMPARISON: Ultrasound abdomen complete 05/06/2021. TECHNIQUE: Real-time imaging of the abdominal viscera. FINDINGS: PANCREAS: Normal. ABDOMINAL AORTA: The proximal, mid, and distal segments are normal in caliber. INFERIOR VENA CAVA: Visualized portions are normal. LIVER: Normal. The liver is normal in size. The liver contour is normal. Parenchymal echogenicity is normal. No focal hepatic lesion. There is no intrahepatic biliary duct dilatation seen. GALLBLADDER: Normal. The gallbladder is physiologically distended without evidence of stones, sludge, polyps, wall thickening or pericholecystic fluid. Sonographic Craft's sign is negative. COMMON BILE DUCT: Normal in caliber measuring 0.2 cm in diameter. RIGHT KIDNEY: Normal. No hydronephrosis. No renal calculi or focal parenchymal lesions. The kidney measures 10.4 cm in maximum dimension. LEFT KIDNEY: Normal. No hydronephrosis. No renal calculi or focal parenchymal lesions. The kidney measures 11.2 cm in maximum dimension. SPLEEN: The spleen measures 13.1 cm in maximum dimension. FREE FLUID: None. US/US abdomen complete IMPRESSION: Unremarkable abdominal ultrasound. Electronically signed by: Reema Beckett MD 11/06/2023 02:41 PM EDT
== END 2023-11-01 10:08 | disposition home or self-care (01) ==
LOC: HO.HMGCX 10:07
PROVIDERS: PCP Nurse Practitioner Family; Visit Provider Nurse Practitioner
DX: R10.9 Unspecified abdominal pain (principal); R19.7 Diarrhea, unspecified
CPT/HCPCS: 76700

== ENCOUNTER 2023-12-03 16:13 | Outpatient (AMB) | payer BC, SELFPAY ==
--- NOTE | 2023-12-03 16:17 | A.OFFVIS_ITS ---
Vital Signs 12/03/23 16:25 Height 6 ft Weight 231 lb 7.766 oz BMI 31.4 BP 156/72 H Blood Pressure Location Rt brachial Position Sitting Pulse 61 Intake Visit Reasons: Abdominal pain Intake Note: Conrado returns to in office follow up of US and abdominal pain. CC: Patient reports not improvement and continues to have same symptoms. He did not take the imipramine. Ctrs Required: No Accompanied by: Self / Same As Patient Allergies No Known Allergies Allergy (Verified 01/26/24 13:56) HPI HPI Abdominal pain: Details: Assessment & Plan (1) Abdominal pain: Code(s): R10.9 - Unspecified abdominal pain Category: Medical (2) Diarrhea: Code(s): R19.7 - Diarrhea, unspecified Category: Medical Plan No help with creon or bentyl. No food allergies. discussed intolerances. He has a lot of bloating and mostly post prandial soft BM's wit some diarrhea. Trial of imipramine. GET US since could not get CT and colonoscopy to see if other pathology. rov 8 WEEKS. Orders: Orders US abdomen complete 10/22/23 R10.9 - Unspecified abdominal pain, R19.7 - Diarrhea, unspecified Colonoscopy - GI Use Only 10/22/23 R10.9 - Unspecified abdominal pain, R19.7 - Diarrhea, unspecified Medications: New imipramine HCl 10 mg PO BEDTIME 30 tabs 3RF 30 days R19.7 - Diarrhea, unspecified peg 3350-electrolytes 236-22.74-6.74 -5.86 gram (Golytely) until fecal effluent is clear; do not exceed a total volume of 2,000 mL 240 mL PO Q10M 4,000 mL 0RF 1 day Z12.11 - Encounter for screening for malignant neoplasm of colon Discontinued synzxc-wesejsoj-ancwtfb 24,000-76,000 -120,000 unit Discontinued Reason: Doctor's Order 2 caps PO BID 30 days 120 caps 3RF K58.9 - Irritable bowel syndrome without diarrhea dicyclomine Discontinued Reason: Doctor's Order 20 mg PO QID 30 days 120 tabs 1RF COLONOSCOPY BIOPSY US ABD 11/06/23 FINDINGS: PANCREAS: Normal. ABDOMINAL AORTA: The proximal, mid, and distal segments are normal in caliber. INFERIOR VENA CAVA: Visualized portions are normal. LIVER: Normal. The liver is normal in size. The liver contour is normal. Parenchymal echogenicity is normal. No focal hepatic lesion. There is no intrahepatic biliary duct dilatation seen. GALLBLADDER: Normal. The gallbladder is physiologically distended without evidence of stones, sludge, polyps, wall thickening or pericholecystic fluid. Sonographic Craft's sign is negative. COMMON BILE DUCT: Normal in caliber measuring 0.2 cm in diameter. RIGHT KIDNEY: Normal. No hydronephrosis. No renal calculi or focal parenchymal lesions. The kidney measures 10.4 cm in maximum dimension. LEFT KIDNEY: Normal. No hydronephrosis. No renal calculi or focal parenchymal lesions. The kidney measures 11.2 cm in maximum dimension. SPLEEN: The spleen measures 13.1 cm in maximum dimension. FREE FLUID: None. US/US abdomen complete IMPRESSION: Unremarkable abdominal ultrasound. TODAY'S VISIT No change in his sx. He decided not to take the imipramine, I would rather find out what is going on. (He has a lot of bloating and mostly post prandial soft BM's wit some diarrhea. ) Will get EGD/colonoscopy. US unrevealing He has possible mild asthma that is currently well controlled and he denies any cardiac problems. There are no prior problems with anesthesia or sedation. There are no infectious disease problems. ROV after procedure. [facility] Medical History Chest discomfort Physical exam Lyme disease Surgical History No pertinent past surgical history Social History Housing: Apartment Alcohol intake: never Patient Tobacco Use Status: Never used Tobacco e-Cigarette/Vaping Use: Never Used Second Hand Smoke Exposure: No service: No Current occupational status: employed Current occupation: [employer] Current occupational exposures/hazards: No Cognitive needs: No Hearing needs: No Vision needs: No Review of Systems Const Denies fatigue, Denies fever(s), Denies night sweats, Reports poor appetite and Denies weight loss Eyes Details: glasses Reports requires corrective lenses ENT Reports Normal hearing present, Denies dental pain, Denies dysphagia, Denies hearing loss, Denies mouth pain, Denies odynophagia, Denies throat swelling, Denies tongue swelling and Reports other (Dentition adequate) Card Reports no additional complaints Resp Reports no additional complaints GI Details: Reports abdominal pain, Denies melena, Reports bloating, Denies hematochezia, Denies constipation, Denies GI cramping, Denies dysphagia, Denies excessive flatus, Denies early satiety, Denies heartburn, Denies diarrhea, Reports loose stools, Denies nausea, Denies odynophagia, Denies vomiting and Denies hematemesis Skin/Breast Denies pruritus, Denies lesions, Denies rash and Denies jaundice Neuro Reports Normal hearing present and Denies Abnormal speech present Endo Denies fatigue Aller/Immun Denies throat swelling and Denies tongue swelling Physical Exam Vital Signs: Last Vital Signs Pulse 61 12/03/23 16:25 BP 156/72 H 12/03/23 16:25 BMI result Body Mass Index 31.4 Const General: cooperative, no acute distress, well developed and well groomed Nutritional Appearance: well nourished and obese Orientation/consciousness: oriented to person, oriented to place and oriented to time Limitations: No language barrier HEENT Head: Yes normocephalic and Yes atraumatic Eyes General: appearance normal, both eyes and all related structures Pupils: Equal, round and reactive pupils present Neck Neck: Yes normal visual inspection and Yes no lymphadenopathy Thyroid: Thyroid normal Resp Effort & Inspection: normal respiratory effort and able to speak in complete sentences Auscultation: clear to auscultation bilaterally Cardio Rate: regular rate Rhythm: regular rhythm Heart sounds: Normal, physiologic split S2 sound present Peripheral pulses: radial pulses present and posterior tibial pulses present GI Inspection: No distended, No Abdominal panniculus present and Yes obesity Palpation (GI): Soft to palpation, nontender, no guarding, not rigid and No hepatosplenomegaly present Percussion: Yes normal to percussion Auscultation: normal bowel sounds Rectal Exam - Male: Yes deferred Skin General skin exam: no rashes or lesions noted, turgor normal, skin not dry, no jaundice, No spider nevi and no striae Rashes: no rashes Nails: normal Neuro General: oriented to person, oriented to place and oriented to time Cranial nerves: Yes Equal, round and reactive pupils present and Yes Normal hearing present Speech: No Abnormal speech present Extrem General: Yes normal to inspection, No clubbing, No cyanosis and No edema Psych Appearance: grossly normal and well kempt Mental Status: mental status grossly normal Speech and movement: Normal speech and movement present Affect: normal affect Attitude: cooperative Thought process: Normal thought process present and not confabulating Thought content: Normal thought content present Insight: Fair insight present (Psych) and Limited insight present (Psych) Judgement: Fair judgement present (Psych) and Limited judgement present (Psych) Results Reviewed Results Reviewed: US ABD 11/06/23 FINDINGS: PANCREAS: Normal. ABDOMINAL AORTA: The proximal, mid, and distal segments are normal in caliber. INFERIOR VENA CAVA: Visualized portions are normal. LIVER: Normal. The liver is normal in size. The liver contour is normal. Parenchymal echogenicity is normal. No focal hepatic lesion. There is no intrahepatic biliary duct dilatation seen. GALLBLADDER: Normal. The gallbladder is physiologically distended without evidence of stones, sludge, polyps, wall thickening or pericholecystic fluid. Sonographic Craft's sign is negative. COMMON BILE DUCT: Normal in caliber measuring 0.2 cm in diameter. RIGHT KIDNEY: Normal. No hydronephrosis. No renal calculi or focal parenchymal lesions. The kidney measures 10.4 cm in maximum dimension. LEFT KIDNEY: Normal. No hydronephrosis. No renal calculi or focal parenchymal lesions. The kidney measures 11.2 cm in maximum dimension. SPLEEN: The spleen measures 13.1 cm in maximum dimension. FREE FLUID: None. US/US abdomen complete IMPRESSION: Unremarkable abdominal ultrasound. Laboratory Tests 05/15/23 07:17 WBC 6.2 Hgb 16.8 Hct 49.6 Plt Count 211 Estimated GFR > 60 Total Bilirubin 0.5 AST 30 ALT 44 H Alkaline Phosphatase 118 H C-Reactive Protein < 0.10 TSH 3.20 Assessment & Plan Assessment & Plan (1) Abdominal pain: Code(s): R10.9 - Unspecified abdominal pain Category: Medical (2) Diarrhea: Code(s): R19.7 - Diarrhea, unspecified Category: Medical (3) Pre-op examination: Code(s): Z01.818 - Encounter for other preprocedural examination Category: Medical Plan No change in his sx. He decided not to take the imipramine, I would rather find out what is going on. (He has a lot of bloating and mostly post prandial soft BM's wit some diarrhea. ) Will get EGD/colonoscopy. US unrevealing He has possible mild asthma that is currently well controlled and he denies any cardiac problems. There are no prior problems with anesthesia or sedation. There are no infectious disease problems. ROV after procedure. EGD/COLONOSCOPY BIOPSY Orders: Orders EGD/[place] Combo - GI Use Only 12/03/23 R10.9 - Unspecified abdominal pain, R19.7 - Diarrhea, unspecified Coding Level of Care Code Est Pt Level 4 (72631) Diagnoses Abdominal pain R10.9 Diarrhea R19.7 Pre-op examination Z01.818
[2023-12-03 16:25] VITALS: BP 156/72; PULSE 61; BMI 31.4
== END 2023-12-03 16:46 | disposition home or self-care (01) ==
PROVIDERS: PCP Nurse Practitioner Family; Visit Provider Nurse Practitioner
DX: R10.9 Unspecified abdominal pain (principal); R19.7 Diarrhea, unspecified; Z01.818 Encounter for other preprocedural examination
CPT/HCPCS: 99499

== ENCOUNTER → 2023-12-03 16:13 | Outpatient (BNVA) | payer BC, SELFPAY | PROVIDERS: PCP Nurse Practitioner Family; Visit Provider Nurse Practitioner ==

== ENCOUNTER 2024-01-26 13:44 | Outpatient (AMB) | payer BC, SELFPAY ==
[2024-01-26 13:55] VITALS: BP 136/70; PULSE 76; O2SAT 97; BMI 31.7
--- NOTE | 2024-01-26 13:55 | A.OFFPC_ITS ---
Vital Signs 01/26/24 13:55 Height 6 ft Weight 234 lb BMI 31.7 BP 136/70 Blood Pressure Location Lt brachial Position Sitting Pulse 76 Pulse Source Pulse Oximeter Pulse Oximetry (%) 97 Intake Visit Reasons: PFT results from September Intake Note: pt is here for discussion regarding PFT results from September Allergies No Known Allergies Allergy (Verified 01/26/24 13:56) Medication List - Last Reconciled 01/26/24 by YASMINE Molina albuterol sulfate 90 mcg/actuation (Ventolin HFA) 1 puff inhalation QID PRN budesonide-formoterol 80-4.5 mcg/actuation (Symbicort) 2 puffs inhalation BID Tobacco use date assessed: 05/12/23 Dental Screening Dental Screen Date: 05/12/23 HPI PFT results from September HPI Details Recent PFT testing showed mild asthma with good bronchodilator response. Pt reports he only notices some symptoms with exercise (squats and cardio). I will have him use symbicort on days he plans to be physically active. Use during a exacerbation of albuterol also recommended. #2 reports ED symptoms. Reports more soft then full ED. Will check a testosterone REPLACED BY [facility] Medical History Chest discomfort Physical exam Lyme disease Surgical History No pertinent past surgical history Social History Housing: Apartment Alcohol intake: never Patient Tobacco Use Status: Never used Tobacco e-Cigarette/Vaping Use: Never Used Second Hand Smoke Exposure: No service: No Current occupational status: employed Current occupation: [employer] Current occupational exposures/hazards: No Cognitive needs: No Hearing needs: No Vision needs: No Questionnaire PHQ-9 Over the last 2 weeks, how often have you been bothered by any of the following problems? 1. Little interest or pleasure in doing things: not at all 2. Feeling down, depressed, or hopeless: not at all 3. Trouble falling or staying asleep, or sleeping too much: not at all 4. Feeling tired or having little energy: not at all 5. Poor appetite or overeating: not at all 6. Feeling bad about yourself - or that you are a failure or have let yourself or your family down: not at all 7. Trouble concentrating on things, such as reading the newspaper or watching television: not at all 8. Moving or speaking so slowly that other people could have noticed. Or the opposite - being so fidgety or restless that you have been moving around a lot more than usual: not at all 9. Thoughts that you would be better off or of hurting yourself in some way: not at all Total score: 0 Depression Screening Interpretation: Negative Depression Screening Done: Yes 62096 - PHQ-9 Billing: Yes Source: Developed by Drs. Stevan Dover, Denisha Fuentes, Justin Rahman and colleagues, with an educational christina from [employer]. Thrive Questionnaire Date Thrive assessed: 01/26/24 I am a: Patient What is your living situation today?: I have a steady place to live Within the past 12 months, did the food you bought not last and you didn't have the money to get more?: Never true Within the past 12 months, did you worry whether your food would run out before you got money to buy more?: Never true Do you have trouble paying for medicines?: No Do you have trouble getting transportation to medical appointments?: No Do you have trouble paying your heating and electricity bill?: No Do you have trouble taking care of your child, family member or friend?: No Do you have trouble with day-to-day activities such as bathing, preparing meals, shopping, managing finances, etc.?: No Are you currently unemployed and looking for a job?: No Are you interested in more education?: No Please select the resources that you would like help with: None Currently or been in a relationship where the following occur: No concerns reported THRIVE Score: 0 AUDIT C Alcohol Use Questionnaire (AUDIT-C) 1. How often do you have a drink containing alcohol?: Never 3. How often do you have six or more drinks on one occasion?: Never Total Score: 0 Score Reviewed/Action Taken: Yes LYNN-7 AMB Questionnaire LYNN-7 Date LYNN - 7 assessed: 01/26/24 Feeling nervous, anxious, or on edge: 0 = Not at all Not being able to stop or control worryin = Not at all Worrying too much about different things: 0 = Not at all Trouble relaxin = Not at all Being so restless that it is hard to sit still: 0 = Not at all Becoming easily annoyed or irritable: 0 = Not at all Feeling afraid as if something awful might happen: 0 = Not at all Total LYNN-7 score (0-4 normal; 5-9 mild; 10-14 moderate; 15-21 severe): 0 Source: Developed by Drs. Stevan Dover, Denisha Fuentes, Justin Rahman and colleagues, with an educational christina from [employer]. LYNN-7 Assessment Billing LYNN-7 Assessment Tool: LYNN-7 Assessment 84298 Physical exam (Primary Care) Vital Signs: Last Vital Signs Pulse 76 01/26/24 13:55 BP 136/70 01/26/24 13:55 Pulse Ox 97 01/26/24 13:55 BMI result Body Mass Index 31.7 Tobacco/Smoking Status: Tobacco use Status Tobacco use date assessed 05/12/23 01/26/24 13:58 Patient Tobacco Use Status Never used Tobacco 01/26/24 13:58 e-Cigarette/Vaping Use Never Used 01/26/24 13:58 PHQ-9: PHQ-9 Score PHQ-9: Total score 0 01/26/24 13:58 Depression Screening Interpretation: Negative Thrive Assessment: Date of Thrive Assessment Date Thrive assessed 01/26/24 01/26/24 13:58 Currently or been in a relationship where the following occur: No concerns reported Resp Effort & Inspection: normal respiratory effort Auscultation: clear to auscultation bilaterally Cardio Rate: regular rate Rhythm: regular rhythm Heart sounds: S1 normal heart sound present, S2 normal heart sound present and no murmurs Psych Appearance: grossly normal Mental Status: mental status grossly normal Speech and movement: Normal speech and movement present Affect: normal affect Attitude: cooperative Thought process: Normal thought process present Thought content: Normal thought content present Insight: Good insight present (Psych) Judgement: Good judgement present (Psych) Coding Level of Care Code Est Pt Level 3 (31634) Diagnoses Erectile disorder N52.9 Screen for STD (sexually transmitted disease) Z11.3 Asthma J45.909 Additional Codes LYNN-7 Assessment Billing - LYNN-7 Assessment Tool: LYNN-7 Assessment 44832 ([id number]) PHQ-9 - 70050 - PHQ-9 Billing: Yes ([id number]) Assessment & Plan Assessment & Plan (1) Erectile disorder: Code(s): N52.9 - Male erectile dysfunction, unspecified Category: Medical Plan: TEST testing (2) Screen for STD (sexually transmitted disease): Code(s): Z11.3 - Encounter for screening for infections with a predominantly sexual mode of transmission Category: Medical Plan: Patient requested this testing, completely asymptomatic (3) Asthma: Code(s): J45.909 - Unspecified asthma, uncomplicated Category: Medical Plan: symbicort sent, knows to rinse mouth out after use Orders: Orders CT NG by PCR Today Z11.3 - Encounter for screening for infections with a predominantly sexual mode of transmission Syphilis Screen Today Z11.3 - Encounter for screening for infections with a predominantly sexual mode of transmission HIV Ab/Ag Today Z11.3 - Encounter for screening for infections with a predomina ntly sexual mode of transmission Testosterone, Free/Total Today N52.9 - Male erectile dysfunction, unspecified Hepatitis A,B,C Profile Today Z11.3 - Encounter for screening for infections with a predominantly sexual mode of transmission Medications: New budesonide-formoterol 80-4.5 mcg/actuation (Symbicort) 2 puffs inhalation BID 10.2 grams 1RF
== END 2024-01-26 15:43 | disposition home or self-care (01) ==
PROVIDERS: PCP Nurse Practitioner Family; Visit Provider Nurse Practitioner Family
DX: N52.9 Male erectile dysfunction, unspecified (principal); Z11.3 Encounter for screening for infections with a predominantly sexual mode of transmission; J45.909 Unspecified asthma, uncomplicated

== ENCOUNTER → 2024-01-26 13:44 | Outpatient (BNVA) | payer BC, SELFPAY | PROVIDERS: PCP Nurse Practitioner Family; Visit Provider Nurse Practitioner Family | DX: J45.909 Unspecified asthma, uncomplicated (principal); N52.9 Male erectile dysfunction, unspecified | CPT/HCPCS: 96127 ==

== ENCOUNTER 2024-01-29 08:12 | Outpatient (REF) | payer BC, SELFPAY ==
[2024-01-29 11:35] LABS: HBS Num1 1.57 mIU/mL (0-7.99); HBc Num1 0.13 S/CO (0.00-0.79); HBsAGNum1 0.43 S/CO (0.00-0.99); HIV AB/AG Nonreactive (Nonreactive); HIV Num 1 0.13 S/CO (0.00-0.99); Hepatitis A Antibody IgM 0.19 Index (0-0.79); Hepatitis B Core Antibody Nonreactive (Nonreactive); Hepatitis B Surface Antigen Negative (Negative); ~HepC Num1 0.21 S/CO (0.00-0.79); ~Hepatitis A Antibody IgM Nonreactive (Nonreactive); ~Hepatitis B Surface Antibody NONREACTIVE (Nonreactive); ~Hepatitis C Antibody Nonreactive (Nonreactive)
[2024-01-29 11:36] LABS: Syphilis Screen Nonreactive (Nonreactive)
[2024-01-29 13:55] LABS: CT PCR NOT DETECTED (Not Detect.); NG PCR NOT DETECTED (Not Detect.)
[2024-02-05 18:42] LABS: Testosterone, Free 145.3 pg/mL (35.0-155.0); Testosterone, Total 579 ng/dL (250-1100)
== END 2024-01-29 08:13 | disposition home or self-care (01) ==
LOC: HO.HMGCLDS 08:12
PROVIDERS: PCP Nurse Practitioner Family; Visit Provider Nurse Practitioner Family
DX: Z11.3 Encounter for screening for infections with a predominantly sexual mode of transmission (principal); N52.9 Male erectile dysfunction, unspecified
CPT/HCPCS: 84402; 84403; 86704; 86706; 86709; 86780; 86803; 87340; 87389; 87491; 87591

== ENCOUNTER 2024-05-03 09:51 | Day surgery (SDC) | payer BC, SELFPAY ==
--- NOTE | 2024-05-02 09:31 | HO.ANESPROP2 ---
Documented by User: Sada Harley NP 05/02/24 09:31 HPI - Anesthesia Eval Consult details Narrative: 23yo M for Upper Endoscopy and Colonoscopy [facility] Active Problems Active Problems: All Active Problems Pre-op examination (Acute) Screen for STD (sexually transmitted disease) (Acute) Erectile disorder (Acute) Asthma (Acute) Abdominal pain (Acute) Chest tightness (Acute) Diarrhea (Acute) Low libido (Acute) Elevated LFTs (Acute) Obesity (Acute) Shortness of Breath (Acute) Fatigue (Acute) Elevated liver enzymes (Acute) Elevated TSH (Acute) Past Medical History Medical History Chest discomfort Physical exam Lyme disease Surgical History Surgical History No pertinent past surgical history Social History Social History Housing: Apartment Are you a primary director of home care hospice to a significant other at home: No Do you presently have visiting nurse or other home services: No Alcohol intake: never Patient Tobacco Use Status: Never used Tobacco e-Cigarette/Vaping Use: Never Used Second Hand Smoke Exposure: No Use of substances other than those prescribed or required for medical reasons: No Have you been hit, kicked, punched, or otherwise hurt by someone within the past year? If so, by whom?: No Are you DNR?: No Advance Directives: No Advance Directives Information Provided: Yes Recently lost weight without trying: No Nutrition Risks: No Nutritional Risk Poor oral hygiene: No service: No Current occupational status: employed Current occupation: [employer] Current occupational exposures/hazards: No Cognitive needs: No Hearing needs: No Vision needs: No Meds Allergies Allergy/AdvReac Type Severity Reaction Status Date / Time No Known Allergies Allergy Verified 05/03/24 10:57 Assessment and Plan Assessment Anesthesia Assessment: Chart Reviewed Documented by User: Nati Alvarado MD 05/03/24 11:31 PMFSH Past Medical History Medical History Chest discomfort Physical exam Lyme disease Family History Family history of problems with anesthesia: No Surgical History Surgical History No pertinent past surgical history History of Problems with Anesthesia: No Social History Social History Housing: Apartment Are you a primary director of home care hospice to a significant other at home: No Do you presently have visiting nurse or other home services: No Alcohol intake: never Patient Tobacco Use Status: Never used Tobacco e-Cigarette/Vaping Use: Never Used Second Hand Smoke Exposure: No Use of substances other than those prescribed or required for medical reasons: No Have you been hit, kicked, punched, or otherwise hurt by someone within the past year? If so, by whom?: No Are you DNR?: No Advance Directives: No Advance Directives Information Provided: Yes Recently lost weight without trying: No Nutrition Risks: No Nutritional Risk Poor oral hygiene: No service: No Current occupational status: employed Current occupation: [employer] Current occupational exposures/hazards: No Cognitive needs: No Hearing needs: No Vision needs: No Meds Allergies Allergy/AdvReac Type Severity Reaction Status Date / Time No Known Allergies Allergy Verified 05/03/24 10:57 Exam Airway Mallampati Class: II TM Dist: >3cm Neck ROM: Full Assessment and Plan Assessment Anesthesia Assessment: Anesthesia Plan Discussed Final Anesthetic Review Family History of Problems with Anesthesia: No History of Problems with Anesthesia: No NPO: Yes ASA Class: II Final Preanesthetic Review: No Changes in Pt Med Stat, Meds/Allgs Chart Reviewed, Consent Obtained/Reviewed and Anes Risks/Benef Reviewed Patient Risk: Low Procedure Risk: Low Anesthetic Plan Anesthetic Plan: TIVA Disposition: Standard PACU
--- NOTE | 2024-05-03 10:41 | MHC.SHP ---
Pre-Procedural Eval Section A - 24 Hr Update-Section A only Date of Service: 05/03/24 Section B - Complete if H&P > 30 days Chief Complaint: Unspecified abdominal pain Relevant Family History (Specify if Yes): No Relevant Social History: None Present Medications: see Short Stay Collaborative assessment Medical History: Significant History (Chest discomfort Physical exam Lyme disease) History of Previous Operations: No relevant previous surgery Allergies: Allergies Allergy/AdvReac Type Severity Reaction Status Date / Time No Known Allergies Allergy Verified 01/26/24 13:56 Review of Systems Sugical H&P ROS: Negative: Constitution, Cardiovascular, Respiratory, Neurological, Psychiatric, Hem-Onc, Allergic/Immunologic, Gastrointestinal, Genitourinary, Musculoskeletal, Integumentary, Endocrine and Eyes/Ears/Nose/Throat Exam Surgical H&P Exam: Normal: HEENT, Normal: Heart, Normal: Lungs, Normal: Extremities, Normal: Abdomen, Normal: Skin and Normal: Neurological Plan Diagnosis/Plan: Unchanged I have reviewed the history and physical and performed a pertinent physical examination on my patient. No changes have occurred unless specified. Time Spent With Patient Time: Total time managing care of this patient today ____ minutes.
[2024-05-03 10:59] VITALS: BP 138/75; PULSE 78; RESP 18; TEMP 37.2; O2SAT 97; BMI 29.7
[2024-05-03] MEDS: Lactated Ringers 1,000 ML 100 ML IVCONT (11:07)
--- NOTE | 2024-05-03 12:05 | P.OPN-COLO_ITS ---
Colonoscopy Operative Note Operative Note Date of Service: 05/03/24 Narrative: Operative Information Procedure Description: EGD, Colonoscopy Indication: abdominal pain Anesthesia: MAC FLEXIBLE TRANSORAL UPPER GASTROINTESTINAL ENDOSCOPY AND COLONOSCOPY PROCEDURE NOTE UPPER ENDOSCOPY Consent: Indications for the procedure and potential complications of bleeding, perforation, reaction to medications and missed diagnosis were discussed with the patient and informed consent was obtained. Instrument: Olympus GIF H 190 J mid size upper endoscope Monitoring: Vital signs and clinical assessment, continuous EKG monitoring, Pulse oximetry, Carbon Dioxide monitoring and blood pressure monitoring were done throughout the procedure. Procedure: The patient was placed in the left lateral decubitis position and pre-procedure medications were administered and a bite block was placed. The endoscope was inserted into the mouth and advanced under direct vision to the third part of duodenum. A careful inspection was made as the upper endoscope was withdrawn including a retroflexed examination of the proximal stomach; Findings and interventions are described below. Findings: Larynx:normal Esophagus: GE junction at 40 cm, diaphragm hiatus at 40 cm, mild esophagitis, bx taken from GEJ, and distal esophagus Stomach: Normal mucosa. Biopsies were obtained. Grade 2 flap valve on retroflexed examination of the cardia. Duodenum: Normal bulb and descending duodenum, bx taken Intervention: Biopsies as noted above, COLONOSCOPY Instrument: Olympus variable stiffness pediatric scope 190L Colonoscopy Monitoring: Vital signs and clinical assessment, continuous EKG monitoring, Pulse oximetry, Carbon Dioxide monitoring and blood pressure monitoring were done throughout the procedure. Colon withdrawal time was 10 minutes. Procedure: The patient was placed in the left lateral decubitis position and pre-procedure medications were administered. After a digital rectal examination of the ano-rectum, the video colonoscope was inserted into the rectum and advanced through the colon to the cecum/TI. The colonoscope was slowly withdrawn in a retrograde panoramic fashion and the colon mucosa was carefully examined including a retroflexed view of the rectum. Findings and interventions are described below. Procedure Difficulty:moderate--tortuous colon Findings: Terminal Ileum-normal, bx taken random bx taken from right and left colon Cecum:normal Ascending Colon: normal Transverse Colon -normal Descending Colon: 10 mm sessile polyp removed with cold snare Sigmoid Colon: normal Rectum: Retroflexion with small internal hemorrhoids, grade I Anorectum - normal Colon preparation: [place] Bowel Preparation Scale Right colon; 2 Transverse colon: 2 Left colon; 2 (0 = Unprepared colon segment with mucosa not seen due to solid stool that cannot be cleared. 1 = Portion of mucosa of the colon segment seen, but other areas of the colon segment not well seen due to staining, residual stool and/or opaque liquid. 2 = Minor amount of residual staining, small fragments of stool and/or opaque liquid, but mucosa of colon segment seen well. 3 = Entire mucosa of colon segment seen well with no residual staining, small fragments of stool or opaque liquid) Impression and Post Procedure Diagnosis: Endoscopy Findings: mild esophagitis Colonoscopy Findings: colon polyp Plan: Await Pathology results Repeat Colonoscopy in 4-5 years or earlier if clinically indicated High fiber diet leaflet avoid straining at stool, epsom salts and sitz bath, anusol supps or cream GERD precautions Above findings were reviewed with the patient and relevant handouts were provided if indicated.
[2024-05-03 12:12] VITALS: BP 99/48; PULSE 74; RESP 16; TEMP 37.1; O2SAT 97
[2024-05-03 12:27] VITALS: BP 119/58; PULSE 72; RESP 20; O2SAT 97
[2024-05-03 12:42] VITALS: BP 124/66; PULSE 75; RESP 20; TEMP 37.2; O2SAT 97
== END 2024-05-03 13:28 | disposition home or self-care (01) ==
PROVIDERS: PCP Nurse Practitioner Family; Visit Provider Internal Medicine Gastroenterology
PROC: (CPT 45385; principal; 2024-05-03 12:00)
DX: D12.4 Benign neoplasm of descending colon (principal); K64.0 First degree hemorrhoids; K56.2 Volvulus; K20.90 Esophagitis, unspecified without bleeding; K29.70 Gastritis, unspecified, without bleeding; R19.7 Diarrhea, unspecified
CPT/HCPCS: 45385; 45380; 43239; 88305; 88313; 88342; J2003; J2704

== ENCOUNTER → 2024-05-03 09:51 | Outpatient (BNV) | payer BC, SELFPAY | PROVIDERS: PCP Nurse Practitioner Family; Visit Provider Internal Medicine Gastroenterology | DX: R19.7 Diarrhea, unspecified (principal); D12.4 Benign neoplasm of descending colon; K64.0 First degree hemorrhoids; K20.90 Esophagitis, unspecified without bleeding | CPT/HCPCS: 43239; 45380; 45385 ==

== ENCOUNTER 2024-06-13 16:02 | Outpatient (AMB) | payer BC, SELFPAY ==
[2024-06-13 16:07] VITALS: BP 118/78; PULSE 62; O2SAT 98; BMI 29.7
--- NOTE | 2024-06-13 16:07 | MHC.PC.OV ---
Vital Signs 06/13/24 16:07 Height 6 ft Weight 219 lb BMI 29.7 BP 118/78 Blood Pressure Location Lt brachial Position Sitting Pulse 62 Pulse Source Pulse Oximeter Pulse Oximetry (%) 98 Oxygen Delivery Method Room Air Intake Visit Reasons: PE Allergies No Known Allergies Allergy (Verified 06/13/24 16:22) Medication List - Last Reconciled 06/13/24 by Homer Plasencia, [employer]ILD[employer] albuterol sulfate 90 mcg/actuation (Ventolin HFA) 1 puff inhalation QID PRN budesonide-formoterol 80-4.5 mcg/actuation (Symbicort) 2 puffs inhalation BID Tobacco use date assessed: 06/13/24 Dental Screening Dental Screen Date: 06/13/24 Did you have a dental visit in the last 12 months?: Yes Did you have a dental problem in the last 6 months where you did not have access to dental care?: No Was dental information given to patient?: Patient has dentist HPI PE HPI Details History of Present Illness The patient is a 23-year-old male presenting for a physical exam and evaluation of low libido. He has recently experienced a decrease in his libido, though he does not specify an exact timeframe for the onset. There are no associated symptoms, such as erectile dysfunction or fatigue. The patient denies any relevant systemic symptoms, and reports no lifestyle or psychological changes influencing the condition. There is no noted improvement with self-implemented changes, and he seeks further assessment to determine if hormonal factors may be contributing. Health Maintenance Social History Review of Systems - Cardiovascular: Denies chest pain. - Respiratory: Denies shortness of breath. - Constitutional: Denies fevers, chills. - Gastrointestinal: Denies abdominal pain, blood in stool, constipation, diarrhea. - Genitourinary: Denies urinary issues. - Psychiatric: Denies suicidal ideation, homicidal ideation. Physical Exam General: Cooperative, healthy appearing, comfortable, no acute distress and well developed Orientation: Patient oriented x3 Limitations: No limitations Head: Normal to inspection Ears: Hearing grossly normal bilaterally Nose: Normal external nose present Face and sinus: Normal facial exam Eyes: Appearance normal, both eyes and all related structures Neck: Normal visual inspection and Yes full ROM Respiratory: Normal respiratory effort and able to speak in complete sentences. Clear to auscultation bilaterally Cardiovascular: Regular rate and rhythm. Normal S1 and S2 GI: Normal to inspection. Soft to palpation and nontender Skin: No rashes or lesions noted Neuro: Patient oriented x3 Extremities: Normal to inspection Results Plan I plan to assess the patient's testosterone levels to evaluate potential hormonal contributions to his low libido, given the lack of other systemic symptoms. The evaluation will involve checking serum testosterone levels. Guidance on lifestyle modifications will be discussed after diagnostic results, with a follow-up planned to review the findings and determine further action. Discussion Notes I discussed with the patient the possible causes of low libido, primarily focusing on hormonal imbalances that could contribute to his symptoms. We discussed the process of obtaining a testosterone level test to evaluate this potential issue, and I explained the benefits of understanding hormonal factors influencing libido. I advised that lifestyle factors such as diet, stress, and exercise may also play roles and that these would be addressed based on the results. The patient was informed of the follow-up procedure to review results and make further management decisions as needed. Patient Instructions - Get a blood test to check testosterone level. - Follow up to discuss the results and next steps. - Consider lifestyle changes like stress management and proper nutrition. - Report any new symptoms or changes in your condition. [facility] Medical History Physical exam Chest discomfort Lyme disease Surgical History Hx of colonoscopy No pertinent past surgical history Social History Housing: Apartment Are you a primary child caregiver to a significant other at home: No Do you presently have visiting nurse or other home services: No Alcohol intake: never Patient Tobacco Use Status: Never used Tobacco e-Cigarette/Vaping Use: Never Used Second Hand Smoke Exposure: No service: No Current occupational status: employed Current occupation: [employer] Current occupational exposures/hazards: No Cognitive needs: No Hearing needs: No Vision needs: No Questionnaire PHQ-9 Over the last 2 weeks, how often have you been bothered by any of the following problems? 1. Little interest or pleasure in doing things: not at all 2. Feeling down, depressed, or hopeless: not at all 3. Trouble falling or staying asleep, or sleeping too much: not at all 4. Feeling tired or having little energy: not at all 5. Poor appetite or overeating: not at all 6. Feeling bad about yourself - or that you are a failure or have let yourself or your family down: not at all 7. Trouble concentrating on things, such as reading the newspaper or watching television: not at all 8. Moving or speaking so slowly that other people could have noticed. Or the opposite - being so fidgety or restless that you have been moving around a lot more than usual: not at all 9. Thoughts that you would be better off or of hurting yourself in some way: not at all Total score: 0 Depression Screening Interpretation: Negative Depression Screening Done: Yes 93044 - PHQ-9 Billing: Yes Source: Developed by Drs. Stevan Dover, Denisha Fuentes, Justin Rahman and colleagues, with an educational christina from [employer]. Thrive Questionnaire Date Thrive assessed: 06/13/24 I am a: Patient What is your living situation today?: I have a steady place to live Within the past 12 months, did the food you bought not last and you didn't have the money to get more?: Never true Within the past 12 months, did you worry whether your food would run out before you got money to buy more?: Never true Do you have trouble paying for medicines?: No Do you have trouble getting transportation to medical appointments?: No Do you have trouble paying your heating and electricity bill?: No Do you have trouble taking care of your child, family member or friend?: No Do you have trouble with day-to-day activities such as bathing, preparing meals, shopping, managing finances, etc.?: No Are you currently unemployed and looking for a job?: No Are you interested in more education?: No Please select the resources that you would like help with: None Currently or been in a relationship where the following occur: No concerns reported THRIVE Score: 0 AUDIT C Alcohol Use Questionnaire (AUDIT-C) 1. How often do you have a drink containing alcohol?: Never 3. How often do you have six or more drinks on one occasion?: Never Total Score: 0 Score Reviewed/Action Taken: Yes LYNN-7 AMB Questionnaire LYNN-7 Date LYNN - 7 assessed: 06/13/24 Feeling nervous, anxious, or on edge: 0 = Not at all Not being able to stop or control worryin = Not at all Worrying too much about different things: 0 = Not at all Trouble relaxin = Not at all Being so restless that it is hard to sit still: 0 = Not at all Becoming easily annoyed or irritable: 0 = Not at all Feeling afraid as if something awful might happen: 0 = Not at all Total LYNN-7 score (0-4 normal; 5-9 mild; 10-14 moderate; 15-21 severe): 0 Source: Developed by Drs. Stevan Dover, Denisha Fuentes, Justin Rahman and colleagues, with an educational christina from [employer]. LYNN-7 Assessment Billing LYNN-7 Assessment Tool: LYNN-7 Assessment 88334 Physical exam (Primary Care) Vital Signs: Last Vital Signs Pulse 62 06/13/24 16:07 BP 118/78 06/13/24 16:07 Pulse Ox 98 06/13/24 16:07 Oxygen Delivery Method Room Air 06/13/24 16:07 BMI result Body Mass Index 29.7 Tobacco/Smoking Status: Tobacco use Status Tobacco use date assessed 06/13/24 06/13/24 16:11 Patient Tobacco Use Status Never used Tobacco 06/13/24 16:11 e-Cigarette/Vaping Use Never Used 06/13/24 16:11 PHQ-9: PHQ-9 Score PHQ-9: Total score 0 06/13/24 16:11 Depression Screening Interpretation: Negative Thrive Assessment: Date of Thrive Assessment Date Thrive assessed 06/13/24 06/13/24 16:11 Currently or been in a relationship where the following occur: No concerns reported Coding Level of Care Code Est Pt Prev Care 18-39y(29668) Diagnoses Physical exam Z00.00 Low libido R68.82 Additional Codes LYNN-7 Assessment Billing - LYNN-7 Assessment Tool: LYNN-7 Assessment 52545 ([id number]) PHQ-9 - 99155 - PHQ-9 Billing: Yes ([id number]) Assessment & Plan Assessment & Plan (1) Physical exam: Code(s): Z00.00 - Encounter for general adult medical examination without abnormal findings Category: Medical (2) Low libido: Code(s): R68.82 - Decreased libido Category: Medical Plan: . Plan . Orders: Orders Comprehensive [place]. Panel Fast Today Z00.00 - Encounter for general adult medical examination without abnormal findings TSH reflex Free T4 Today Z00.00 - Encounter for general adult medical examination without abnormal findings UA CC w/rflx Micro + Cult Today Z00.00 - Encounter for general adult medical examination without abnormal findings Lipid Panel Today Z00.00 - Encounter for general adult medical examination without abnormal findings Complete Blood Count Auto Diff Today Z00.00 - Encounter for general adult medical examination without abnormal findings Testosterone, Free/Total Today R68.82 - Decreased libido, Z00.00 - Encounter for general adult medical examination without abnormal findings
== END 2024-06-13 16:34 | disposition home or self-care (01) ==
PROVIDERS: PCP Nurse Practitioner Family; Visit Provider Nurse Practitioner Family
DX: Z00.00 Encounter for general adult medical examination without abnormal findings (principal); R68.82 Decreased libido

== ENCOUNTER → 2024-06-13 16:02 | Outpatient (BNVA) | payer BC, SELFPAY | PROVIDERS: PCP Nurse Practitioner Family; Visit Provider Nurse Practitioner Family | DX: Z00.00 Encounter for general adult medical examination without abnormal findings (principal); R68.82 Decreased libido | CPT/HCPCS: 96127 ==

== ENCOUNTER 2024-07-15 07:26 | Outpatient (REF) | payer BC, SELFPAY ==
[2024-07-15 11:36] LABS: MANUAL DIFF FLAG NO
[2024-07-15 11:47] LABS: Basophils Percent Auto 0.4 % (0-2); Eosinophils Absolute Auto 0.1 X10*3/uL (0.0-0.4); Eosinophils Percent Auto 1.5 % (0-4); Hematocrit 49.4 % (42.0-52.0); Hemoglobin 16.2 g/dl (14.0-18.0); Imm Gran Abs Auto 0.02 X10*3/uL (0.00-0.03); Imm Gran Pct Auto 0.3 % (0.0-0.4); Lymphocytes Absolute Auto 2.7 X10*3/uL (1.2-4.9); Mean Corpuscular HGB Conc 32.8 g/dl (31.0-36.0); Mean Corpuscular Hemoglobin 29.5 pg (27.0-33.0); Mean Platelet Volume 9.6 fL (9.4-12.4); Monocytes Absolute Auto 0.5 X10*3/uL (0.1-1.2); Monocytes Percent Auto 7.1 % (2-11); Neutrophils Absolute Auto 3.8 x10*3/uL (2.0-8.3); Neutrophils Percent Auto 52.7 % (45-73); Platelet Count 225 X10*3/uL (160-400); Red Blood Count 5.49 X10*6/uL (4.60-5.80); White Blood Count 7.2 X10*3/uL (4.8-10.8)
[2024-07-15 11:59] LABS: Appearance Urine Clear; Color Urine Yellow; Glucose Urine UA Negative (Negative); Leukocyte Esterase Urine Negative (Negative); Nitrite Urine Negative (Negative); PH 6.5 (5.0-9.0); Specific Gravity - Urine <= 1.005 (1.005-1.025); Urine Blood Negative (Negative); Urine Ketones Negative (Negative); Urine Protein Negative (Neg-Trace)
[2024-07-15 12:10] LABS: Alanine Aminotransferase 59 U/L (0-40); Albumin Level 4.5 g/dL (3.5-5.0); Alkaline Phosphatase 116 U/L (39-117); Anion Gap 14 (12-20); Aspartate Amino Transferase 29 U/L (5-37); Bilirubin Total 0.4 mg/dL (0.0-1.0); Blood Urea Nitrogen 22 mg/dL (9-16); Calcium 9.5 mg/dL (8.4-10.2); Carbon Dioxide 27 mmol/L (22-29); Chloride 103 mmol/L (96-108); Cholesterol 196 mg/dL (<200); Estimated Glomerular Filt Rate > 60; Glucose Fasting 98 mg/dL (60-99); HDL Cholesterol 45 mg/dL (>40); LDL Cholesterol Calculated 135 mg/dL (<100); Potassium 4.4 mmol/L (3.3-5.1); Sodium 140 mmol/L (135-145); Total Protein 6.9 g/dL (6.5-8.0); Triglycerides 84 mg/dL (<150)
[2024-07-20 21:43] LABS: Testosterone, Free 187.5 pg/mL (35.0-155.0); Testosterone, Total 658 ng/dL (250-1100)
== END 2024-07-15 07:27 | disposition home or self-care (01) ==
LOC: HO.HMGCLDS 07:26
PROVIDERS: PCP Nurse Practitioner Family; Visit Provider Nurse Practitioner Family
DX: Z00.00 Encounter for general adult medical examination without abnormal findings (principal); R68.82 Decreased libido; Z13.6 Encounter for screening for cardiovascular disorders
CPT/HCPCS: 36415; 80053; 80061; 81003; 84402; 84403; 84443; 85025

== ENCOUNTER 2024-07-26 15:43 | Outpatient (AMB) | payer BC, SELFPAY ==
[2024-07-26 15:45] VITALS: BP 132/65; PULSE 75; O2SAT 97; BMI 29.7
--- NOTE | 2024-07-26 15:45 | MHC.OFFVIS ---
Vital Signs 07/26/24 15:45 Height 6 ft Weight 218 lb 11.177 oz BMI 29.7 BP 132/65 Blood Pressure Location Lt brachial Position Sitting Pulse 75 Pulse Source Pulse Oximeter Pulse Oximetry (%) 97 Oxygen Delivery Method Room Air Intake Visit Reasons: Post op r/s 05/17/24 Intake Note: Pt presents to the office today for a post-op appt. Pt states he is overall feeling well. Allergies No Known Allergies Allergy (Verified 07/26/24 15:45) HPI HPI Post op r/s 05/17/24: Details: Assessment & Plan (1) Abdominal pain: Code(s): R10.9 - Unspecified abdominal pain Category: Medical (2) Diarrhea: Code(s): R19.7 - Diarrhea, unspecified Category: Medical (3) Pre-op examination: Code(s): Z01.818 - Encounter for other preprocedural examination Category: Medical Plan No change in his sx. He decided not to take the imipramine, I would rather find out what is going on. (He has a lot of bloating and mostly post prandial soft BM's wit some diarrhea. ) Will get EGD/colonoscopy. US unrevealing He has possible mild asthma that is currently well controlled and he denies any cardiac problems. There are no prior problems with anesthesia or sedation. There are no infectious disease problems. ROV after procedure. Orders: Orders EGD/Hodges Combo - GI Use Only 12/03/23 R10.9 - Unspecified abdominal pain, R19.7 - Diarrhea, unspecified EGD/COLONOSCOPY 05/03/24 Findings: Larynx:normal Esophagus: GE junction at 40 cm, diaphragm hiatus at 40 cm, mild esophagitis, bx taken from GEJ, and distal esophagus Stomach: Normal mucosa. Biopsies were obtained. Grade 2 flap valve on retroflexed examination of the cardia. Duodenum: Normal bulb and descending duodenum, bx taken Findings: Terminal Ileum-normal, bx taken random bx taken from right and left colon Cecum:normal Ascending Colon: normal Transverse Colon -normal Descending Colon: 10 mm sessile polyp removed with cold snare Sigmoid Colon: normal Rectum: Retroflexion with small internal hemorrhoids, grade I Anorectum - normal Impression and Post Procedure Diagnosis: Endoscopy Findings: mild esophagitis Colonoscopy Findings: colon polyp Plan: Await Pathology results Repeat Colonoscopy in 4-5 years or earlier if clinically indicated High fiber diet leaflet avoid straining at stool, epsom salts and sitz bath, anusol supps or cream GERD precautions BIOPSY Received: 05/03/24 Diagnosis A. Duodenum, biopsy: Duodenal mucosa within normal limits. B. Stomach, biopsy: Oxyntic mucosa with mild chronic inactive inflammation; no Helicobacter organisms seen. C. GE junction, biopsy: - Cardiac-type mucosa with moderate chronic inactive inflammation; no intestinal metaplasia seen. - Active esophagitis (maximum eosinophil count 4 per high powered field). D. Esophagus, distal, biopsy: Squamous epithelium within normal limits; no inflammation seen. E. Colon, descending, polypectomy: Fragments of tubular adenoma; negative for high-grade dysplasia or carcinoma. F. Terminal ileum, biopsy: Terminal ileal mucosa within normal limits. G. Colon, right, biopsy: Colonic mucosa within normal limits. H. Colon, left, biopsy: Colonic mucosa within normal limits. I. Rectum, biopsy: Rectal mucosa within normal limits TODAY'S VISIT The procedure should be repeated in 5 years due to the rather large tubular adenoma. The procedure was well tolerated. The results were explained and the patient is agreeable to the follow-up interval as stated. The bowel pattern has returned to normal. Education was provided to tell any 1st degree relatives about their findings to be sure that they are screened by age 45. Educated that they will be put on a recall list when it is time for their repeat scope but should they move out of state or away from the hospital they will need to remember along with their primary to repeat the procedure in a timely fashion to avoid any adverse complications. He continues have the same symptoms at times having normal bowel movements, and at times having to run to the bathroom postprandially with soft to looser bowel movements. He also tends to have watery stool after his initial formed bowel movement in the mornings. I spent quite a lot of time explaining to him that this likely is functional. That means that it is due to a million different variables that we probably will never pinned down and so we usually just treat the symptoms. To date, he has had an unremarkable EGD/colonoscopy, a normal pancreatic a last taste, a normal stool calprotectin, a normal CRP, a negative celiac workup, and a RAST panel uncovering no food allergies, he has also had an unremarkable ultrasound without any sign of gallbladder disease. He really does not like pills and I understand that. I did tell him there is no [id number]-wxzpuga supplement called IBgard that is based mostly on peppermint which does have clinical evidence showing that it can be effective. As always if he has a change from this baseline it and or if the symptoms start to really interfere with his life that she should return to my office to discuss possible medication therapy. Return office visit in 6 months per patient request. [facility] Medical History (Updated 07/26/24 @ 16:24 by CHRIS Garcia) Shortness of Breath Diarrhea Abdominal pain Screen for STD (sexually transmitted disease) Pre-op examination Physical exam Chest discomfort Lyme disease Surgical History Hx of colonoscopy No pertinent past surgical history Social History Housing: Apartment Are you a primary care center manager to a significant other at home: No Do you presently have visiting nurse or other home services: No Alcohol intake: never Patient Tobacco Use Status: Never used Tobacco e-Cigarette/Vaping Use: Never Used Second Hand Smoke Exposure: No service: No Current occupational status: employed Current occupation: [employer] Current occupational exposures/hazards: No Cognitive needs: No Hearing needs: No Vision needs: No Review of Systems Const Denies fatigue, Denies fever(s), Denies night sweats, Denies poor appetite and Denies weight loss Eyes Details: glasses Reports requires corrective lenses ENT Reports Normal hearing present, Denies dental pain, Denies dysphagia, Denies hearing loss, Denies mouth pain, Denies odynophagia, Denies throat swelling, Denies tongue swelling and Reports other (Dentition adequate) Card Reports no additional complaints Resp Reports no additional complaints GI Details: Denies abdominal pain, Denies melena, Reports bloating, Denies hematochezia, Denies constipation, Denies GI cramping, Denies dysphagia, Denies excessive flatus, Denies early satiety, Denies heartburn, Denies diarrhea, Reports loose stools, Denies nausea, Denies odynophagia, Denies vomiting and Denies hematemesis Skin/Breast Denies pruritus, Denies lesions, Denies rash and Denies jaundice Neuro Reports Normal hearing present and Denies Abnormal speech present Endo Denies fatigue Aller/Immun Denies throat swelling and Denies tongue swelling Physical Exam Vital Signs: Last Vital Signs Pulse 75 07/26/24 15:45 BP 132/65 07/26/24 15:45 Pulse Ox 97 07/26/24 15:45 Oxygen Delivery Method Room Air 07/26/24 15:45 BMI result Body Mass Index 29.7 Const General: cooperative, no acute distress, well developed and well groomed Nutritional Appearance: well nourished and overweight Orientation/consciousness: oriented to person, oriented to place and oriented to time Limitations: No language barrier HEENT Head: Yes normocephalic and Yes atraumatic Eyes General: appearance normal, both eyes and all related structures Pupils: Equal, round and reactive pupils present Neck Neck: Yes normal visual inspection and Yes no lymphadenopathy Thyroid: Thyroid normal Resp Effort & Inspection: normal respiratory effort and able to speak in complete sentences Auscultation: clear to auscultation bilaterally Cardio Rate: regular rate Rhythm: regular rhythm Heart sounds: Normal, physiologic split S2 sound present Peripheral pulses: radial pulses present and posterior tibial pulses present GI Inspection: No distended, No Abdominal panniculus present and Yes obesity Palpation (GI): Soft to palpation, nontender, no guarding, not rigid and No hepatosplenomegaly present Percussion: Yes normal to percussion Auscultation: normal bowel sounds Rectal Exam - Male: Yes deferred Skin General skin exam: no rashes or lesions noted, turgor normal, skin not dry, no jaundice, No spider nevi and no striae Rashes: no rashes Nails: normal Neuro General: oriented to person, oriented to place and oriented to time Cranial nerves: Yes Equal, round and reactive pupils present and Yes Normal hearing present Speech: No Abnormal speech present Extrem General: Yes normal to inspection, No clubbing, No cyanosis and No edema Psych Appearance: grossly normal and well kempt Mental Status: mental status grossly normal Speech and movement: Normal speech and movement present Affect: normal affect Attitude: cooperative Thought process: Normal thought process present and not confabulating Thought content: Normal thought content present Insight: Fair insight present (Psych) Judgement: Fair judgement present (Psych) Assessment & Plan Assessment & Plan (1) Tubular adenoma of colon: Comment: 2024 scope= TA Code(s): D12.6 - Benign neoplasm of colon, unspecified Category: Medical (2) IBS (irritable bowel syndrome): Code(s): K58.9 - Irritable bowel syndrome, unspecified Category: Medical Plan The procedure should be repeated in 5 years due to the rather large tubular adenoma. The procedure was well tolerated. The results were explained and the patient is agreeable to the follow-up interval as stated. The bowel pattern has returned to normal. Education was provided to tell any 1st degree relatives about their findings to be sure that they are screened by age 45. Educated that they will be put on a recall list when it is time for their repeat scope but should they move out of state or away from the hospital they will need to remember along with their primary to repeat the procedure in a timely fashion to avoid any adverse complications. He continues have the same symptoms at times having normal bowel movements, and at times having to run to the bathroom postprandially with soft to looser bowel movements. He also tends to have watery stool after his initial formed bowel movement in the mornings. I spent quite a lot of time explaining to him that this likely is functional. That means that it is due to a million different variables that we probably will never pinned down and so we usually just treat the symptoms. To date, he has had an unremarkable EGD/colonoscopy, a normal pancreatic a last taste, a normal stool calprotectin, a normal CRP, a negative celiac workup, and a RAST panel uncovering no food allergies, he has also had an unremarkable ultrasound without any sign of gallbladder disease. He really does not like pills and I understand that. I did tell him there is no nqsx-oul-qswihir supplement called IBgard that is based mostly on peppermint which does have clinical evidence showing that it can be effective. As always if he has a change from this baseline it and or if the symptoms start to really interfere with his life that she should return to my office to discuss possible medication therapy. Return office visit in 6 months per patient request. Coding Level of Care Code Est Pt Level 3 (27049) Diagnoses Tubular adenoma of colon D12.6 IBS (irritable bowel syndrome) K58.9
== END 2024-07-26 16:23 | disposition home or self-care (01) ==
LOC: HO.HGI 15:44
PROVIDERS: PCP Nurse Practitioner Family; Visit Provider Nurse Practitioner
DX: D12.6 Benign neoplasm of colon, unspecified (principal); K58.9 Irritable bowel syndrome, unspecified
CPT/HCPCS: 99213

== ENCOUNTER 2024-10-03 07:00 | Outpatient (AMB) | payer BC, SELFPAY ==
--- NOTE | 2024-10-03 07:45 | MHC.PC.OV ---
Intake Visit Reasons: erectile dysfunction Allergies No Known Allergies Allergy (Verified 10/03/24 07:48) Tobacco use date assessed: 06/13/24 Dental Screening Dental Screen Date: 06/13/24 HPI erectile dysfunction HPI Details History of Present Illness The patient is a 24-year-old male presenting with erectile dysfunction. He reports being unable to maintain an erection sufficient for sexual intercourse since he started a relationship with his girlfriend. The patient has a muscular build and denies any history of chest pain, fevers, or chills. A testosterone test conducted in July was within normal limits, suggesting no hormonal imbalance. The patient appears to be experiencing stress, which may be contributing to his condition. Review of Systems - General: Denies fevers or chills. - Cardiovascular: Denies chest pain or shortness of breath. Plan The patient will be started on a low dose of Sildenafil to manage erectile dysfunction. A referral to urology is planned for further evaluation due to the patient's young age and the persistence of symptoms. The patient was advised that he could take two tablets of Sildenafil if one tablet is ineffective. Discussion Notes I discussed with the patient the initiation of Sildenafil for erectile dysfunction and the possibility of taking two tablets if one is ineffective. I also recommended a referral to urology for further evaluation, considering the patient's age and symptoms. Patient Instructions - Start taking Sildenafil as prescribed. If one tablet does not work, you may take two tablets. - Follow up with urology as referred for further evaluation. [facility] Medical History Shortness of Breath Diarrhea Abdominal pain Screen for STD (sexually transmitted disease) Pre-op examination Physical exam Chest discomfort Lyme disease Surgical History Hx of colonoscopy No pertinent past surgical history Social History Housing: Apartment Are you a primary career and technology education teacher to a significant other at home: No Do you presently have visiting nurse or other home services: No Alcohol intake: never Patient Tobacco Use Status: Never used Tobacco e-Cigarette/Vaping Use: Never Used Second Hand Smoke Exposure: No service: No Current occupational status: employed Current occupation: [employer] Current occupational exposures/hazards: No Cognitive needs: No Hearing needs: No Vision needs: No Questionnaire Thrive Questionnaire Date Thrive assessed: 01/26/24 I am a: Patient What is your living situation today?: I have a steady place to live Within the past 12 months, did the food you bought not last and you didn't have the money to get more?: Never true Within the past 12 months, did you worry whether your food would run out before you got money to buy more?: Never true Do you have trouble paying for medicines?: No Do you have trouble getting transportation to medical appointments?: No Do you have trouble paying your heating and electricity bill?: No Do you have trouble taking care of your child, family member or friend?: No Do you have trouble with day-to-day activities such as bathing, preparing meals, shopping, managing finances, etc.?: No Are you currently unemployed and looking for a job?: No Are you interested in more education?: No Please select the resources that you would like help with: None Currently or been in a relationship where the following occur: No concerns reported THRIVE Score: 0 LYNN-7 AMB Questionnaire LYNN-7 Date LYNN - 7 assessed: 06/13/24 Source: Developed by Drs. Stevan Dover, Denisha Fuentes, Justin Rahman and colleagues, with an educational christina from [employer]. Physical exam (Primary Care) Tobacco/Smoking Status: Tobacco use Status Tobacco use date assessed 06/13/24 10/03/24 07:47 Patient Tobacco Use Status Never used Tobacco 10/03/24 07:47 e-Cigarette/Vaping Use Never Used 10/03/24 07:47 Thrive Assessment: Date of Thrive Assessment Date Thrive assessed 01/26/24 10/03/24 07:47 Currently or been in a relationship where the following occur: No concerns reported Telehealth Telehealth Telehealth Platform: [facility] Location of provider rendering services: practice address Location of patient: address on file Patient Identification confirmed using: Name, : Yes Telehealth method: video Patient verbally consented to treatment: Yes Patient verbally consented to billing insurance company: Yes Patient informed of any privacy concerns related to visit: Yes Minutes spent on Phone/Video with Pt.: 12 Coding Level of Care Code Tele Est Pt Level 3 (45708) Diagnoses Erectile disorder N52.9 Assessment & Plan Assessment & Plan (1) Erectile disorder: Code(s): N52.9 - Male erectile dysfunction, unspecified Category: Medical Plan . Orders: Referrals Urology Referral N52.9 - Male erectile dysfunction, unspecified Medications: New sildenafil (Viagra) administer 30 minutes to 4 hours before activity 25 mg PO DAILY PRN 14 tabs 1RF sexual activity
== END 2024-10-03 14:10 | disposition home or self-care (01) ==
LOC: HO.HMCC 07:00
PROVIDERS: PCP Nurse Practitioner Family; Visit Provider Nurse Practitioner Family
DX: N52.9 Male erectile dysfunction, unspecified (principal)

== ENCOUNTER → 2024-10-03 07:00 | Outpatient (BNVA) | payer BC, SELFPAY | PROVIDERS: PCP Nurse Practitioner Family; Visit Provider Nurse Practitioner Family | DX: N52.9 Male erectile dysfunction, unspecified (principal) | CPT/HCPCS: 98967 ==